=== PATIENT | male | born 1965 | race Caucasian/White ===

== ENCOUNTER 2022-08-19 17:50 | Emergency (ER) | payer OTHER, SELFPAY ==
--- NOTE | ~2022-08-19 | XR_ITS ---
EXAMINATION: XR chest 2V Exam Date/Time: 08/19/2022 18:05 SERVICES ACCOUNT MANAGER HISTORY: COUGH/SOB/FEVER HISTORY OF ASTHMA Comparison: None available. RESULT: Lines, tubes, and devices: None. Lungs and pleura: Mild scattered reticulonodular opacities in the mid and lower lungs, greater on th e right. Cardiomediastinal silhouette: Stable. Other: No acute osseous or upper abdominal finding. IMPRESSION: Pulmonary opacities may represent mild bronchiolitis, as can be seen with atypical infection, asthma, aspiration, and small airways disease. Reviewed, dictated and finalized at location K. ICES ACCOUNT MANAGER IMPRESSION: Pulmonary opacities may represent mild bronchiolitis, as can be seen with atypi patrica infection, asthma, aspiration, and small airways disease.
--- NOTE | 2022-08-19 17:56 | ED.URI ---
HPI - URI/Sore Throat General Chief Complaint: Upper Respiratory Infection Stated Complaint: ASTHMA/CHEST TIGHT/CONGESTION/BODY ACHES Time Seen by Provider: 08/19/22 17:56 Source: patient and RN notes reviewed History of Present Illness HPI Narrative: Patient is a 56-year-old male who presents to urgent care with complaints of body aches, chest congestion, chest tightness and fever. Patient states he started with a cough, for the last 2 weeks, which has now developed into chest tightness, body aches and fevers. Patient has not taken anything [id number] for his fever or upper respiratory symptoms. Patient does use his inhalers as needed. No other acute complaints. No acute distress noted. Patient aware of the plan of care. Some parts of this dictation were generated by voice recognition software and may contain typographical and/or grammatical inaccuracies. Related Data Home Medications Medication Instructions Recorded Confirmed albuterol sulfate 90 mcg/actuation 90 mcg inhalation DIRECTED 08/19/22 08/19/22 aerosol inhaler atenolol 50 mg tablet 50 mg DIRECTED 08/19/22 08/19/22 gabapentin 300 mg capsule 300 mg DIRECTED 08/19/22 08/19/22 lisinopril 20 1 tablet DIRECTED 08/19/22 08/19/22 mg-hydrochlorothiazide 12.5 mg tablet metformin 1,000 mg tablet 1,000 mg DIRECTED 08/19/22 08/19/22 simvastatin 40 mg tablet 40 mg DIRECTED 08/19/22 08/19/22 tamsulosin 0.4 mg capsule 0.4 mg PO DIRECTED 08/19/22 08/19/22 Allergies Allergy/AdvReac Type Severity Reaction Status Date / Time No Known Allergies Allergy Verified 08/19/22 19:09 Review of Systems Review of Systems: CONSTITUTIONAL: Reports a fever and fatigue EYES: Denies visual changes, redness, or discharge. ENT: Reports of congestion, postnasal drainage and rhinorrhea CARDIOVASCULAR: Denies chest pain, palpitations, or edema. RESPIRATORY: Reports of cough and chest tightness GASTROINTESTINAL: Denies abdominal pain, nausea, vomiting, or diarrhea. GENITOURINARY: Denies dysuria or hematuria. SKIN: Denies rash or itching. MUSCULOSKELETAL: Denies back pain, joint pain. Reports body aches NEUROLOGIC: Denies headache, numbness, or weakness. All other systems reviewed are negative, except as documented in HPI. PMFSH Comments At the time of my signature, I reviewed and agree with the nursing past medical, surgical, social, and family history. There is no relevant family history pertinent to the patient complaint. Exam Narrative: GENERAL: This is a well-nourished, well-developed patient, in no apparent distress. HEAD: normocephalic, atraumatic. EYES: PERRL. Sclera clear/white. Vision is grossly intact. EARS: External ears normal, auditory canals clear and without drainage, TMs normal without perforation. Hearing grossly intact. NOSE: External nose normal with no obvious nasal discharge, nares without redness, no rhinorrhea. THROAT: Mucous membranes moist, posterior pharynx clear. Moderate postnasal drainage NECK: Neck supple, non-tender without lymphadenopathy CARDIOVASCULAR: Regular rate and rhythm without murmurs, gallops, or rubs. RESPIRATORY: Inspiratory wheezes and diminished to the right upper lobe otherwise clear SKIN: warm, intact with no suspicious lesions or rash, good texture and turgor. NEURO: awake, alert, and oriented to person, place and time. There were no obvious focal neurologic abnormalities. EXTREMITIES: No clubbing, cyanosis, or edema. Course Course Level of Care: Express Care Visit Vital Signs Vital signs: Vital Signs Temperature 101.3 F H 08/19/22 18:01 Pulse Rate 101 H 08/19/22 18:01 Respiratory Rate 16 08/19/22 18:01 Blood Pressure 163/88 H 08/19/22 18:01 Pulse Oximetry 100 08/19/22 18:01 Temperature 101.3 F H 08/19/22 18:01 Pulse Rate 101 H 08/19/22 18:01 Respiratory Rate 16 08/19/22 18:01 Blood Pressure 163/88 H 08/19/22 18:01 Pulse Oximetry 100 08/19/22 18:01 Reviewed- Pat
[2022-08-19 18:01] VITALS: BP 163/88; PULSE 101; RESP 16; TEMP 38.5; O2SAT 100
== END 2022-08-19 19:19 | disposition home or self-care (01) ==
PROVIDERS: Emergency Provider Nurse Practitioner Family
DX: J40 Bronchitis, not specified as acute or chronic (principal)
CPT/HCPCS: 71046; 99213; G0463

== ENCOUNTER 2022-08-31 11:34 | Emergency (ER) | payer OTHER, SELFPAY ==
--- NOTE | ~2022-08-31 | XR_ITS ---
EXAMINATION: XR toe 1st RT min 2V DATE: 08/31/2022 12:50 INDICATION: Swollen and erythematous right great toe TECHNIQUE: Dorsal plantar, lateral and 2 oblique views of the right great toe were obtained. COMPARISON: None FINDINGS: Bone alignment is normal. Minimal osteoarthritis at the first metatarsophalangeal joint. Remaining halley int spaces are relatively preserved. Soft tissue swelling about the right great toe. Skin ulceration at the plantar aspect of the base of the first distal phalanx. There is extension of gas into the kandice per soft tissues. No cortical associated cortical erosion or evident osteolysis to suggest osteomyeli tis. No extension of gas into the more proximal soft tissues to more specifically suggest necrotizing fasciitis although this is a clinical diagnosis. IMPRESSION: Skin ulceration and deeper extension of soft tissue gas at the distal phalanx of the right great toe without evident osteomyelitis. Reviewed, dictated and finalized at location A. ION COMMANDER IMPRESSION: Skin ulceration and deeper extension of soft tissue gas at the distal phalanx o f the right great toe without evident osteomyelitis.
[2022-08-31 11:43] VITALS: BP 137/64; PULSE 88; RESP 16; TEMP 36; O2SAT 99
--- NOTE | 2022-08-31 12:48 | ED.EXTPRO ---
HPI - Extremity Problem General Chief complaint: Extremity Problem,Nontraumatic Stated complaint: SWOLLEN TOE Time Seen by Provider: 08/31/22 12:57 Source: patient Mode of arrival: ambulatory Limitations: no limitations History of Present Illness HPI Narrative: 56-year-old male with a history of diabetes presented for complaint of swelling, pain, and redness to the right great toe for about 3 days. States he developed a callus to the toe after walking for a long time. He states then the callus became loose and he attempted to remove it by cutting on it. Since then the symptoms developed. He states he tried to find a sign hanger but was not able to. He endorses moving to the area in May. He endorses compliance with his diabetic medications, but has not been checking his blood sugars. He was placed on doxycycline and steroid 2 weeks ago for URI. Continues to report sinus pressure congestion. He denies shortness of breath, wheezing, nausea vomiting, diarrhea, fever or chills. Related Data Home Medications Medication Instructions Recorded Confirmed albuterol sulfate 90 mcg/actuation 90 mcg inhalation DIRECTED 08/19/22 08/31/22 aerosol inhaler atenolol 50 mg tablet 50 mg DIRECTED 08/19/22 08/31/22 gabapentin 300 mg capsule 300 mg DIRECTED 08/19/22 08/31/22 lisinopril 20 1 tablet DIRECTED 08/19/22 08/31/22 mg-hydrochlorothiazide 12.5 mg tablet metformin 1,000 mg tablet 1,000 mg DIRECTED 08/19/22 08/31/22 simvastatin 40 mg tablet 40 mg DIRECTED 08/19/22 08/31/22 tamsulosin 0.4 mg capsule 0.4 mg PO DIRECTED 08/19/22 08/31/22 Allergies Allergy/AdvReac Type Severity Reaction Status Date / Time No Known Allergies Allergy Verified 08/19/22 19:09 Review of Systems Review of Systems: CONSTITUTIONAL: Denies body aches, fever, chills EYES: Denies visual changes ENT: Denies rhinorrhea, congestion CARDIOVASCULAR: Denies chest pain, palpitations, or edema. RESPIRATORY: Denies cough or dyspnea. GASTROINTESTINAL: Denies abdominal pain, nausea, vomiting, or diarrhea. SKIN: Per HPI MUSCULOSKELETAL: Denies back pain, joint pain, or myalgia. NEUROLOGIC: Denies headache, numbness, tingling, or weakness. All systems reviewed & are unremarkable except as noted in HPI and below PMFSH Comments At time of signature, I have reviewed and agree with nursing past medical, surgical, social and family history unless otherwise noted. Please see nursing chart for further information. There is no relevant family history pertinent to the presenting complaint Exam Narrative: GENERAL: Well-appearing CHEST: Speaks in full sentences. No respiratory distress. HEART: Regular rate and rhythm. Normal and equal peripheral pulses. EXTREMITIES: Right great toe with large amount of swelling and erythema to MTP. Callous to the plantar aspect with small amount of purulent drainage with pressure; Darkened discoloration also to the planar aspect mid toe. Right foot has normal strength and sensation, normal range of motion. No open wounds, or obvious deformity; pulse palpable and equal bilaterally, skin warm, dry, pink. Capillary refill less than 3 seconds. SKIN: Warm, dry, no rash. NEURO: Alert and oriented x3. PSYCH: Normal mood and affect Course Course Emergency Course: Patient is aware of diagnosis, understands and agrees to treatment plan. Anticipatory guidance given. Patient agrees to follow-up as directed and is aware of reasons to seek care at the emergency department. Portions of this record may have been created with voice recognition software Level of Care: Express Care Visit Vital Signs Vital signs: Vital Signs Temperature 96.8 F L 08/31/22 11:43 Pulse Rate 88 08/31/22 11:43 Respiratory Rate 16 08/31/22 11:43 Blood Pressure 137/64 08/31/22 11:43 Pulse Oximetry 99 08/31/22 11:43 Temperature 96.8 F L 08/31/22 11:43 Pulse Rate 88 08/31/22 11:43 Respiratory Rate 16 08/31/22
== END 2022-08-31 14:12 | disposition short-term general hospital (02) ==
PROVIDERS: Emergency Provider Nurse Practitioner Family
DX: L97.519 Non-pressure chronic ulcer of other part of right foot with unspecified severity (principal); E78.00 Pure hypercholesterolemia, unspecified; I10 Essential (primary) hypertension; J45.909 Unspecified asthma, uncomplicated; N40.0 Benign prostatic hyperplasia without lower urinary tract symptoms; E11.9 Type 2 diabetes mellitus without complications
CPT/HCPCS: 73660; 99212; G0463

== ENCOUNTER 2022-08-31 15:05 | Inpatient (IN) | payer OTHER, SELFPAY ==
[2022-08-31] VITALS (14 sets, daily range): BP systolic 114–143; BP diastolic 66–88; PULSE 88–100; RESP 16–20; TEMP 36.7–37.2; O2SAT 94–99; BMI 69.9
--- NOTE | ~2022-08-31 | XR_ITS ---
Clinical Indication: Shortness of breath PA and lateral views of the chest: Comparison: 08/19/2022 Findings: The lungs are clear, without evidence of focal consolidation or pleural effusion. Cardiome diastinal silhouette is within normal limits. Bones and soft tissues are unremarkable. Impression: Normal chest. Reviewed, dictated and finalized at location [] Impression: Normal chest.
--- NOTE | 2022-08-31 16:59 | ED.GENADULT ---
HPI - General Adult General Chief complaint: Skin/Abscess/Foreign Body Stated complaint: toe ulcer Time Seen by Provider: 08/31/22 16:52 History of Present Illness HPI narrative: Patient is a 56-year-old male with a history of type 2 diabetes here for evaluation of right great toe redness, swelling and pain for the past day. Patient states that he popped a blister on the toe 2 weeks ago, but first noticed the redness and swelling yesterday. He denies any systemic symptoms currently, but was treated for pneumonia 2 weeks ago and had fevers at that time. He presented to an urgent care facility today and had an x-ray that showed subcutaneous gas but no evidence of osteomyelitis, but was referred to the ED given the appearance of his toe and risk factors for osteomyelitis. Related Data Home Medications Medication Instructions Recorded Confirmed albuterol sulfate 90 mcg/actuation 90 mcg inhalation DIRECTED 08/19/22 08/31/22 aerosol inhaler atenolol 50 mg tablet 50 mg DIRECTED 08/19/22 08/31/22 gabapentin 300 mg capsule 300 mg DIRECTED 08/19/22 08/31/22 lisinopril 20 1 tablet DIRECTED 08/19/22 08/31/22 mg-hydrochlorothiazide 12.5 mg tablet metformin 1,000 mg tablet 1,000 mg DIRECTED 08/19/22 08/31/22 simvastatin 40 mg tablet 40 mg DIRECTED 08/19/22 08/31/22 tamsulosin 0.4 mg capsule 0.4 mg PO DIRECTED 08/19/22 08/31/22 Allergies Allergy/AdvReac Type Severity Reaction Status Date / Time No Known Allergies Allergy Verified 08/31/22 16:44 Review of Systems Review of Systems: Gen: Denies fevers or chills Eyes: Denies eye pain or visual change ENT: Denies congestion Respiratory: Denies shortness of breath or cough CV: Denies chest pain or palpitations GI: Denies abdominal pain nausea, emesis or diarrhea : denies burning, urgency, frequency or hematuria Musculoskeletal: Reports right great toe pain redness and swelling Neuro: Denies numbness, tingling, weakness or focal weakness Skin: Denies rash Except as documented, all other systems reviewed and negative Exam Narrative: APPEARANCE: Well appearing, no pain in distress, well-nourished. Head: Normocephalic and atraumatic. EYES: PERRLA/EOMI, conjunctivae clear NOSE: No nasal drainage EARS: External ear normal in appearance THROAT: Oropharynx is clear. Mucous membranes are moist. NECK: Supple. No adenopathy, no masses. RESPIRATORY: Airway patent, respirations nonlabored. Clear to auscultation bilaterally, no rales, rhonchi, wheezing. CARDIOVASCULAR: Regular rate and rhythm without murmurs, rubs, or gallops. ABDOMINAL: Normoactive bowel sounds. Soft, nontender, nondistended. No rebound tenderness or guarding. MUSCULOSKELETAL: Right great toe is markedly erythematous and swollen, he has a area of skin breakdown along the medial aspect and palpable subcutaneous gas along the plantar aspect of the toe with blistering. No pain with passive range of motion. NEURO: Normal speech. No focal neurologic deficits. SKIN: Skin is warm and dry. No rashes. PSYCHIATRIC: Normal affect/mood. Course Vital Signs Vital signs: Vital Signs Temperature 98.0 F 08/31/22 15:33 Pulse Rate 88 08/31/22 15:33 Respiratory Rate 16 08/31/22 15:33 Blood Pressure 125/66 08/31/22 15:33 Pulse Oximetry 99 08/31/22 15:33 Oxygen Delivery Room Air 08/31/22 15:33 Temperature 98.9 F 08/31/22 16:38 Pulse Rate 90 08/31/22 16:38 Respiratory Rate 18 08/31/22 16:38 Blood Pressure 114/68 08/31/22 18:15 Pulse Oximetry 99 08/31/22 19:00 Oxygen Delivery Room Air 08/31/22 15:33 Medical Decision Making [facility] Narrative Medical decision making narrative: 56-year-old male who is a type II diabetic here for evaluation of marked right great toe swelling and pain and redness for the past day after scratching at a blister. Patient's right great toe is markedly erythematous and swelling and there is a open area on the dorsum that is draining purulent mate
[2022-08-31 17:43] LABS: Basophils Percent Auto 0.1 % (0.2-1.2); Eosinophils Percent Auto 0.2 % (0-4.4); Hematocrit 40.9 % (42.0-52.0); Hemoglobin 13.3 g/dL (14.0-18.0); Immature Granulocyte Absolute 0.12 K/mm3 (0.00-0.031); Immature Granulocyte Percent A 0.8 % (0-0.5); Lymphocytes Percent Auto 11.5 % (18.3-44.2); Mean Corpuscular HGB Conc 32.5 g/dl (32-36); Mean Corpuscular Hemoglobin 28.8 pg (26-34); Mean Corpuscular Volume 88.5 fl (80-100); Mean Platelet Volume 9.6 fl (7.4-10.4); Monocytes Absolute Auto 0.7 K/mm3 (0.1-0.6); Monocytes Percent Auto 4.9 % (2.6-8.5); Neutrophils Absolute Auto 12.2 K/mm3 (1.3-6.7); Neutrophils Percent Auto 82.5 % (45.5-73.1); Platelet Count Result 235 k/mm3 (150-375); Red Blood Count 4.62 M/mm3 (4.6-6.20); Red Cell Distribution Width 13.1 % (11.5-14.5); White Blood Count 14.8 K/mm3 (4.5-10.0)
[2022-08-31 17:53] LABS: Lactic Acid Reflex 1.7 mmol/L (0.7-2.0)
[2022-08-31 17:55] LABS: Alanine Aminotransferase 32 U/L (6-50); Albumin Level 4.5 g/dL (3.5-5.1); Alkaline Phosphatase 76 U/L (38-126); Anion Gap 8 mmol/L (8-16); Aspartate Amino Transferase 26 U/L (17-59); Bilirubin,Total 1.3 mg/dL (0.2-1.3); Blood Urea Nitrogen 26 mg/dL (9-20); CRP 6.6 mg/dL (<1.0); Calcium 9.4 mg/dL (8.4-10.2); Carbon Dioxide 28 mmol/L (22-30); Chloride 98 mmol/L (98-107); Estimated CRCL calculation 83 ml/min; Estimated Glomerular Filt Rate > 60; Glucose 396 mg/dL (65-110); Potassium 4.6 mmol/L (3.4-5.0); Sodium 134 mmol/L (137-145)
[2022-08-31 18:11] LABS: Erythrocyte Sedimentation Rate 19 mm/hr (0-20)
[2022-08-31 18:48] LABS: Influenza A QL RT-PCR Positive (Negative); Influenza B QL RT-PCR Negative (Negative); SARS-CoV-2 RNA PCR Negative
--- NOTE | 2022-08-31 21:20 | ADMGEN ---
This patient, Eric Santos, was admitted to Medical Room 241-01. Patient/family oriented to hospital policies and general routines including ID bracelet, bed and alarms, visiting hours, pain management, procedures, bathroom and other care routines, personal items, smoking policy, room service/diet, and visiting hours. Information on how to activate the Rapid Response Team has been discussed. Patient/Family are encouraged to report perceived risks to care and to ask questions if they do not understand what they are told or what they should do.
[2022-09-01] VITALS (8 sets, daily range): BP systolic 114–130; BP diastolic 54–61; PULSE 59–95; RESP 16–20; TEMP 36.3–36.8; O2SAT 95–99
[2022-09-01] MEDS: GABAPENTIN 300 MG CAPSULE BY MOUTH ×3 (01:20→20:50)
[2022-09-01] MEDS: TAMSULOSIN HCL 0.4 MG CAPSULE PO ×2 (01:20→20:50)
[2022-09-01] MEDS: SIMVASTATIN 20 MG TABLET 40 MG BY MOUTH ×2 (01:21→20:50)
[2022-09-01] MEDS: atenoloL 50 MG TABLET BY MOUTH ×2 (01:21→20:50)
--- NOTE | 2022-09-01 01:55 | PM.IMHP ---
H&P: HPI History of Present Illness Date/Time: 08/31/22 2300 Chief Complaint: Right toe infection Narrative: This is a 56-year-old diabetic patient who presented to the emergency room with right swollen painful toe. It has gotten worse over the last 3 days. The patient initially had a callus on the right toe several weeks ago and he attempted to remove by cutting it off. Since that times symptoms have developed. The patient attempted to find a front desk supervisor but was not able to find 1. The patient was on doxycycline and steroids approximately 2 weeks ago for an upper respiratory infection. The patient felt very achy today and felt like he had a fever. His white count 14.8. His H&H is 13.3 and 40.9. Blood sugar was found to be 396. C reactive protein 6.6. The patient was found to be positive for influenza. The patient was started on vancomycin. X-ray of the foot was read as skin ulceration and deeper extension of soft tissue gas at the distal phalanx of the right great toe without evidence of osteomyelitis. Dr. Adair has been consulted. The patient is being admitted to observation status on the date of service of 08/31/2022. Review of Systems Review of Systems: See HPI All systems reviewed & are unremarkable except as noted in HPI and below Constitutional: Constitutional: Reports as per HPI and Reports no additional constitutional complaints Eyes: Eyes: Reports as per HPI and Reports no additional eye complaints ENT: Reports system reviewed and no additional complaints, except as documented and Reports Normal hearing present Cardiovascular: Cardiovascular: Reports no additional cardiovascular complaints Respiratory: Respiratory: Reports no additional respiratory complaints and Reports no additional respiratory complaints Gastrointestinal: Gastrointestinal: Reports as per HPI and Reports no additional gastrointestinal complaints Musculoskeletal: Musculoskeletal: Reports no additional musculoskeletal complaints Integumentary/Breasts: Skin/Breast: Reports system reviewed and no additional complaints, except as docu and Reports as per HPI Neurologic: Reports system reviewed and no additional complaints, except as documented, Reports as per HPI and Reports Normal hearing present Psychiatric: Psychiatric: Reports no additional psychiatric complaints and Reports as per HPI Endocrine: Endocrine: Reports no additional endocrine complaints Hematologic/Lymphatic: Hematologic/Lymphatic: Reports no additional hematologic/lymphatic complaints Allergic/Immunologic: Allergic/Immunologic: Reports no additional allergic/immunologic complaints [facility] Past Medical History Medical History (Updated 09/01/22 @ 02:18 by Linda Diamond NP) Asthma Diabetic neuropathy DM2 (diabetes mellitus, type 2) HTN (hypertension) with goal to be determined Hyperlipidemia Surgical History Surgical History (Updated 09/01/22 @ 02:11 by Linda Diamond NP) H/O eye surgery H/O shoulder surgery Sarcoma removed History of back surgery S/P lateral meniscus repair of left knee And right Family History Family History (Updated 09/01/22 @ 02:12 by Linda Diamond NP) Father Hypertension Mother Chronic back pain Social History Social History (Updated 09/01/22 @ 02:14 by Linda Diamond NP) Social History: The patient is and lives with his . The patient has 2 daughters. His is the durable power district attorney for healthcare. The patient is lifelong nonsmoker. He has a couple drinks a week. 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 Code status full code Smoking status: Never smoker Alcohol intake: former Drinks per week: 3 Substance use: former Substance use type: does not use Lack of Transportation: No Lack of Food: Never True Current Housing: I Have Housing Concerned About Future Housing: No Difficulty Paying Gas/Electric Bills: No Difficulty Paying for Meds: No Currently Unemplo
[2022-09-01] MEDS: metroNIDAZOLE 500 MG/ISO 100ML 500 MG/100 ML BAG 100 MG IVPB ×4 (02:25→21:28)
[2022-09-01 03:35] LABS: Basophils Percent Auto 0.2 % (0.2-1.2); Eosinophils Absolute Auto 0.1 K/mm3 (0-0.3); Eosinophils Percent Auto 0.8 % (0-4.4); Hematocrit 37.3 % (42.0-52.0); Hemoglobin 12.2 g/dL (14.0-18.0); Immature Granulocyte Absolute 0.07 K/mm3 (0.00-0.031); Immature Granulocyte Percent A 0.6 % (0-0.5); Lymphocytes Absolute Auto 2.13 K/mm3 (0.9-3.2); Lymphocytes Percent Auto 17.6 % (18.3-44.2); Mean Corpuscular HGB Conc 32.7 g/dl (32-36); Mean Corpuscular Hemoglobin 28.8 pg (26-34); Mean Platelet Volume 9.5 fl (7.4-10.4); Monocytes Absolute Auto 0.9 K/mm3 (0.1-0.6); Monocytes Percent Auto 7.5 % (2.6-8.5); Neutrophils Absolute Auto 8.9 K/mm3 (1.3-6.7); Neutrophils Percent Auto 73.3 % (45.5-73.1); Platelet Count Result 219 k/mm3 (150-375); Red Blood Count 4.24 M/mm3 (4.6-6.20); Red Cell Distribution Width 13.1 % (11.5-14.5); White Blood Count 12.1 K/mm3 (4.5-10.0)
[2022-09-01 03:49] LABS: Alanine Aminotransferase 28 U/L (6-50); Albumin Level 3.9 g/dL (3.5-5.1); Alkaline Phosphatase 69 U/L (38-126); Anion Gap 9 mmol/L (8-16); Aspartate Amino Transferase 24 U/L (17-59); Bilirubin,Total 1.1 mg/dL (0.2-1.3); Blood Urea Nitrogen 23 mg/dL (9-20); Calcium 8.9 mg/dL (8.4-10.2); Carbon Dioxide 25 mmol/L (22-30); Chloride 99 mmol/L (98-107); Estimated CRCL calculation 131 ml/min; Estimated Glomerular Filt Rate > 60; Glucose 355 mg/dL (65-110); Hemoglobin A1C 11.2 % (<5.7); Magnesium 1.8 mg/dL (1.6-2.3); Potassium 4.1 mmol/L (3.4-5.0); Sodium 133 mmol/L (137-145)
[2022-09-01 03:50] LABS: Lactic Acid Reflex 1.2 mmol/L (0.7-2.0)
[2022-09-01 04:24] LABS: Thyroid Stimulating Hormone Reflex 0.917 uIU/mL (0.465-4.68)
[2022-09-01 06:43] LABS: Glucose Point of Care 368 mg/dl (65-105)
[2022-09-01 08:15] LABS: Glucose Point of Care 367 mg/dl (65-105)
--- NOTE | 2022-09-01 08:26 | PM.CNOR ---
Assessment and Plan Assessment and plan (1) Diabetic neuropathy: Qualifiers: Diabetes mellitus type: type 2 Diabetes mellitus complication detail: diabetic polyneuropathy Qualified Code(s): E11.42 - Type 2 diabetes mellitus with diabetic polyneuropathy Code(s): E11.40 - Type 2 diabetes mellitus with diabetic neuropathy, unspecified Status: Acute Assessment and Plan: discuss need for improved blood sugar control. (2) Infection of great toe: Code(s): L08.9 - Local infection of the skin and subcutaneous tissue, unspecified Status: Acute Assessment and Plan: 56-year-old with uncontrolled diabetes. Patient recently moved here from [place]. Has not seen primary care. Hemoglobin A1c greater than 11. Right hallux callus now with subcutaneous abscess and infection. Started on antibiotics. Discussed with patient. Start dressing changes. Plan for debridement of the toe. Possible need for further surgery discussed with the patient. Questions answered. Discussed nonoperative and operative treatment options with the patient. Risks and benefits of each as well as alternatives were reviewed. All of the patient's questions were answered. The risks of surgery reviewed including but not limited to: Neurovascular damage, wound complication, infection, blood clot, pulmonary embolus, stroke, myocardial infarction, and anesthetic risks up to and including . Continued pain and possible dysfunction were explained. Specific risks of the procedure including later recurrence of deformity. No guarantees were offered. If complications occur, the patient understands the need for further treatment, possible further surgery. Patient verbalizes understanding and wishes to proceed. PLAN: Right toe debridement (3) Type 2 diabetes with complication: Code(s): E11.8 - Type 2 diabetes mellitus with unspecified complications Status: Acute (4) Diabetic foot infection: Code(s): E11.628 - Type 2 diabetes mellitus with other skin complications; L08.9 - Local infection of the skin and subcutaneous tissue, unspecified Status: Acute History of Present Illness HPI Consult date: 09/01/22 Requesting physician: Alethea Horne PA-C Chief complaint: Great Toe Infection Narrative: 56-year-old gentleman with uncontrolled diabetes who presented to the emergency room yesterday with a red swollen draining great toe. Patient reports noticed callus and swelling of the great toe right foot 2 months ago. Conservative treatment of the callus at that time. Approximately 10 days ago removed some of the callus at home and noted subsequent redness and swelling of the great toe. Worsening of the redness and swelling noted 3 days ago. Unable to be seen as an outpatient and presented to the emergency room. Currently being treated for flu with steroid and antibiotic. No prior history of toe ulcers or infections. Patient states some loss of sensation in the feet but also associated with lumbar spine problems. Status post lumbar surgery. Review of Systems Constitutional: Constitutional: Denies fever(s) Eyes: Eyes: Denies blurry vision ENT: Reports Normal hearing present Cardiovascular: Cardiovascular: Denies chest pain and Denies dyspnea Respiratory: Respiratory: Denies dyspnea and Denies wheezing Gastrointestinal: Gastrointestinal: Denies abdominal pain Genitourinary: Genitourinary: Denies urinary urgency Musculoskeletal: Musculoskeletal: Reports as per HPI and Denies numbness Integumentary/Breasts: Skin/Breast: Denies changing lesions and Denies sores Neurologic: Reports Normal hearing present, Denies behavioral changes, Denies confusion, Reports numbness ( Mild toes), Denies convulsions and Reports tingling Psychiatric: Psychiatric: Denies behavioral changes, Denies confusion and Denies hallucinations Endocrine: Endocrine: Denies heat intolerance Hematologic/Lymphatic: Hematolo
[2022-09-01] MEDS: ENOXAPARIN 40 MG/0.4 ML SYRINGE SUB-Q (09:20)
[2022-09-01] MEDS: lisinopriL 20 MG TABLET PO (09:20)
[2022-09-01] MEDS: OSELTAMIVIR PHOSPHATE 75 MG CAPSULE PO ×2 (09:20→20:50)
[2022-09-01] MEDS: hydroCHLOROthiazide 12.5 MG CAPSULE PO (09:20)
[2022-09-01] MEDS: INSULIN ASPART (*BKC) 100 UNITS/ML SUB-Q ×3 (09:29→17:30)
[2022-09-01 12:06] LABS: Glucose Point of Care 346 mg/dl (65-105)
[2022-09-01] MEDS: guaiFENesin/DEXTROMETHORPHAN 10 ML UDC PO (12:38)
--- NOTE | 2022-09-01 17:06 | PM.IMPN ---
Progress Note: A&P Assessment and Plan (1) Infection of great toe: Code(s): L08.9 - Local infection of the skin and subcutaneous tissue, unspecified Status: Acute Assessment and Plan: patient had a callus of the right great toe which has infected x-ray revealed skin ulceration with deeper extension of soft tissue gas in the distal phalanx of the right great toe without evidence of osteomyelitis appreciate orthopedic surgery consultation continue vanc, cefepime, and Flagyl leukocytosis is improving CRP 6.6 patient is afebrile planning for great toe debridement per Orthopedic surgery wound culture pending blood culture pending (2) DM2 (diabetes mellitus, type 2): Code(s): E11.9 - Type 2 diabetes mellitus without complications Status: Acute Assessment and Plan: uncontrolled. A1c is 11.2. Continue Accu-Cheks, sliding scale insulin, hypoglycemic protocol begin Lantus 20 units q.h.s. NovoLog 6 units scheduled with meals patient is hesitant about considering home insulin. requests CDE evaluation home metformin on hold (3) Influenza A: Code(s): J10.1 - Influenza due to other identified influenza virus with other respiratory manifestations Status: Acute Assessment and Plan: influenza a PCR positive on 08/30/2022 CXR with pulmonary opacities which may represent mild bronchiolitis and possible atypical infection continue Tamiflu supportive care patient has no oxygen requirement (4) HTN (hypertension) with goal to be determined: Code(s): I10 - Essential (primary) hypertension Status: Chronic Assessment and Plan: blood pressure is stable. Continue home lisinopril-hydrochlorothiazide and atenolol (5) Asthma: Code(s): J45.909 - Unspecified asthma, uncomplicated Status: Chronic Assessment and Plan: not in acute exacerbation albuterol as needed (6) Hyperlipidemia: Code(s): E78.5 - Hyperlipidemia, unspecified Status: Chronic Assessment and Plan: no acute issues Continue simvastatin Subjective Date/time seen: 09/01/22 17:06 Interval history: date of service: 09/01/2022 Eric Santos is a 56-year-old male with history of type 2 diabetes mellitus, peripheral neuropathy, hypertension, hyperlipidemia, and asthma who is seen in follow-up for right great toe wound and influenza. On he noticed that his great toe was slightly reddened. He had his trim his nails to make sure there was no ingrown nail an on Friday notice the swelling was worse and he had some mild pain. Yesterday, the toe was very swollen and red and painful. The patient reports that he is feeling well. He has no pain in his toe. He does endorse decreased sensation secondary to neuropathy. Denies any drainage from the toe. He denies fever, chills, nausea, or vomiting. Has had a couple of episodes of diarrhea since starting antibiotics. He endorses cough productive of yellow sputum. He denies shortness of breath. Does endorse sinus congestion. He did not receive a flu vaccine. Reports about 2 weeks ago went to urgent care with complaints of shortness of breath and completed course of doxycycline and prednisone without much improvement. Reports he has not been checking his blood sugars it is frequently and has not had his A1c checked in a while. denies polydipsia or polyuria. Review of Systems Review of Systems: All systems reviewed & are unremarkable except as noted in HPI and below Exam Narrative: General: Obese, well-appearing 56-year-old male, sitting up in a chair, comfortable, NARD Neuro: awake, alert and oriented x4, speech clear, no focal neuro deficits noted HEENMT: normocephalic, atraumatic, EOMI, sclerae anicteric Respiratory: clear to auscultation bilaterally, nonlabored breathing Cardio: regular rate, regular rhythm with S1-S2 Abdomen: non
[2022-09-01 17:08] LABS: Glucose Point of Care 305 mg/dl (65-105)
[2022-09-01] MEDS: guaiFENesin 12 HR 600 MG TABCR PO (20:50)
[2022-09-01] MEDS: FLUTICASONE PROPIONATE 0.05% NA SPR 16 GM BTL (*BKC) 1 SPRAY NASAL (20:51)
[2022-09-01] MEDS: INSULIN GLARGINE (*BKC) 100 UNITS/ML 20 UNITS SUB-Q (21:57)
[2022-09-01 22:51] LABS: Glucose Point of Care 298 mg/dl (65-105)
[2022-09-02] VITALS (14 sets, daily range): BP systolic 93–137; BP diastolic 48–75; PULSE 61–85; RESP 14–20; TEMP 36.2–37.1; O2SAT 98–100
[2022-09-02 04:13] LABS: Vancomycin Trough 15.6 ug/mL (10.0-20.0)
[2022-09-02] MEDS: INSULIN ASPART (*BKC) 100 UNITS/ML SUB-Q ×3 (05:08→17:14)
[2022-09-02] MEDS: metroNIDAZOLE 500 MG/ISO 100ML 500 MG/100 ML BAG 100 MG IVPB ×3 (05:18→23:43)
[2022-09-02] MEDS: OSELTAMIVIR PHOSPHATE 75 MG CAPSULE PO ×2 (05:18→17:13)
[2022-09-02 05:42] LABS: Basophils Percent Auto 0.4 % (0.2-1.2); Eosinophils Absolute Auto 0.2 K/mm3 (0-0.3); Eosinophils Percent Auto 1.4 % (0-4.4); Hematocrit 38.7 % (42.0-52.0); Hemoglobin 12.4 g/dL (14.0-18.0); Immature Granulocyte Absolute 0.05 K/mm3 (0.00-0.031); Immature Granulocyte Percent A 0.5 % (0-0.5); Lymphocytes Absolute Auto 2.31 K/mm3 (0.9-3.2); Lymphocytes Percent Auto 21.4 % (18.3-44.2); Mean Corpuscular Hemoglobin 28.6 pg (26-34); Mean Corpuscular Volume 89.2 fl (80-100); Mean Platelet Volume 9.6 fl (7.4-10.4); Monocytes Absolute Auto 0.9 K/mm3 (0.1-0.6); Neutrophils Absolute Auto 7.4 K/mm3 (1.3-6.7); Neutrophils Percent Auto 68.3 % (45.5-73.1); Platelet Count Result 221 k/mm3 (150-375); Red Blood Count 4.34 M/mm3 (4.6-6.20); Red Cell Distribution Width 12.9 % (11.5-14.5); White Blood Count 10.8 K/mm3 (4.5-10.0)
[2022-09-02 05:52] LABS: Anion Gap 8 mmol/L (8-16); Blood Urea Nitrogen 24 mg/dL (9-20); Calcium 9.2 mg/dL (8.4-10.2); Carbon Dioxide 27 mmol/L (22-30); Chloride 100 mmol/L (98-107); Estimated CRCL calculation 65 ml/min; Estimated Glomerular Filt Rate 57; Glucose 245 mg/dL (65-110); Sodium 135 mmol/L (137-145)
[2022-09-02 06:05] LABS: CRP 13.8 mg/dL (<1.0)
--- NOTE | 2022-09-02 07:09 | WPDHPUPDATE1 ---
History and Physical Update Update Date/Time: 09/02/22 07:09 History and Physical has been reviewed, including an updated exam of the patient. There are NO changes in the patient's condition. Risks, benefits, and alternatives have been discussed and questions answered. Patient agrees to proceed with procedure.
--- NOTE | 2022-09-02 07:38 | WPDANESEPPF ---
Anes - Initial Pre Proc Eval Procedure: Operation Date: 09/02/22 11:30 Proposed Procedures p Incision and Debridement Right Great Toe - Carl Adair MD Date/Time: 09/02/22 07:38 Surgeon: Lainey Youngblood PA-C Pre Op Diagnosis: Great Toe Infection Patient Data Age: 56 Gender: M Height: 1.75 m Weight: 97 kg Last Vital Signs Temp 37.1 C 09/02/22 01:30 Pulse 61 09/02/22 01:30 Resp 20 09/02/22 01:30 BP 109/61 09/02/22 01:30 Pulse Ox 99 09/02/22 01:30 O2 Del Method Room Air 09/01/22 20:00 Allergies Allergy/AdvReac Type Severity Reaction Status Date / Time No Known Allergies Allergy Verified 08/31/22 16:44 Home Medications Medication Instructions Recorded Confirmed Type albuterol sulfate 90 mcg/actuation 90 mcg inhalation DIRECTED 08/19/22 08/31/22 History aerosol inhaler atenolol 50 mg tablet 50 mg HS 08/19/22 08/31/22 History gabapentin 300 mg capsule 300 mg BID 08/19/22 08/31/22 History lisinopril 20 1 tablet DAILY 08/19/22 08/31/22 History mg-hydrochlorothiazide 12.5 mg tablet metformin 1,000 mg tablet 1,000 mg BID 08/19/22 08/31/22 History simvastatin 40 mg tablet 40 mg HS 08/19/22 08/31/22 History tamsulosin 0.4 mg capsule 0.4 mg PO HS 08/19/22 08/31/22 History Laboratory Tests 09/01/22 09/01/22 09/01/22 08:06 11:56 17:03 WBC RBC Hgb Hct MCV MCH MCHC RDW Plt Count MPV Immature Gran % (Auto) Neut % (Auto) Lymph % (Auto) [place] % (Auto) Eos % (Auto) Baso % (Auto) Lymph # (Auto) [place] # (Auto) Eos # (Auto) Baso # (Auto) Abs Immat Gran (auto) Absolute Neuts (auto) Absolute Nucleated RBC Nucleated RBC % Sodium Potassium Chloride Carbon Dioxide Anion Gap BUN Creatinine Estim Creat Clear Calc Estimated GFR Glucose POC Capillary Glucose 367 mg/dl H mg/dl 346 mg/dl H mg/dl 305 mg/dl H mg/dl (65-105) (65-105) (65-105) Calcium C-Reactive Protein Vancomycin Trough 09/01/22 09/02/22 09/02/22 21:41 02:34 04:40 WBC 10.8 K/mm3 H K/mm3 (4.5-10.0) RBC 4.34 M/mm3 L M/mm3 (4.6-6.20) Hgb 12.4 g/dL L g/dL (14.0-18.0) Hct 38.7 % L % (42.0-52.0) MCV 89.2 fl fl (80-100) MCH 28.6 pg pg (26-34) MCHC 32.0 g/dl g/dl (32-36) RDW 12.9 % % (11.5-14.5) Plt Count 221 k/mm3 k/mm3 (150-375) MPV 9.6 fl fl (7.4-10.4) Immature Gran % (Auto) 0.5 % % (0-0.5) Neut % (Auto) 68.3 % % (45.5-73.1) Lymph % (Auto) 21.4 % % (18.3-44.2) [place] % (Auto) 8.0 % % (2.6-8.5) Eos % (Auto) 1.4 % % (0-4.4) Baso % (Auto) 0.4 % % (0.2-1.2) Lymph # (Auto) 2.31 K/mm3 K/mm3 (0.9-3.2) [place] # (Auto) 0.9 K/mm3 H K/mm3 (0.1-0.6) Eos # (Auto) 0.2 K/mm3 K/mm3 (0-0.3) Baso # (Auto) 0.0 K/mm3 K/mm3 (0.0-0.1) Abs Immat Gran (auto) 0.05 K/mm3 H K/mm3 (0.00-0.031) Absolute Neuts (auto) 7.4 K/mm3 H K/mm3 (1.3-6.7) Absolute Nucleated RBC 0.0 K/mm3 K/mm3 (0.0-0.012) Nucleated RBC % 0.0 % % (0.0-0.2) Sodium Potassium Chloride Carbon Dioxide Anion Gap BUN Creatinine Estim Creat Clear Calc Estimated GFR Glucose POC Capillary Glucose 298 mg/dl H mg/dl (65-105) Calcium C-Reactive Protein Vancomycin Trough 15.6 ug/mL ug
[2022-09-02 07:47] LABS: Glucose Point of Care 297 mg/dl (65-105)
[2022-09-02] MEDS: LACTATED RINGERS 1,000 ML 30 ML IV CONT (07:53)
[2022-09-02 08:19] LABS: Glucose Point of Care 244 mg/dl (65-105)
[2022-09-02] MEDS: BUPIVACAINE HCL 0.5% PF 30 ML VIAL INFILTRATE (08:37)
[2022-09-02] MEDS: BACITRACIN OINTMENT 15 GM TUBE 1 APPLIC TOPICAL (08:51)
[2022-09-02 09:07] LABS: Glucose Point of Care 282 mg/dl (65-105)
--- NOTE | 2022-09-02 09:17 | W.PM.PROC2 ---
Procedure Note - Detailed Date of Procedure 09/02/22 Pre-op Diagnosis Great Toe Infection Post-op Diagnosis Same Procedure Performed Excisional debridement of right great toe Surgeon Carl Adair MD Dianetic Counselor 1st learning and development assistant Anesthesia MAC Indications 56-year-old with diabetes, peripheral neuropathy and right hallux soft tissue infection. Purulence drainage noted. Loss of skin from the end of the toe. Patient presents for operative treatment. Findings Abscess involving the plantar and lateral aspect of the hallux extending to the flexor hallucis longus tendon sheath. Description of Procedure Patient identified in the preoperative holding. Informed consent given. Operative extremity marked. Patient received intravenous antibiotics. Patient brought to the operating room where underwent Intravenous sedation by anesthesia team. Positioned supine on operating room table. Time-out performed confirming the patient, site of the surgery and the plan. Right foot prepped and draped usual sterile surgical fashion using a Betadine prep solution. local anesthetic with 0.5% Marcaine plain to the right hallux. 1.2 cm callus on the medial aspect of the distal hallux was removed with a 15 blade knife. Subcutaneous tissue with infection noted. Debrided with 15 blade knife. [place] elevator placed through this with communication across the plantar pulp of the toe to the lateral aspect abscess. The skin over the lateral aspect removed with 15 blade knife which was devitalized. This opened a subcutaneous abscess in the pulp itself. Purulent material drained and suctioned. Infected and devitalized subcutaneous tissue and muscle sharply excised with 15 blade knife and rongeur and passed off. Incision through the skin connecting the lateral abscess with the medial callus then made with 15 blade knife. Soft tissue reflected plantarward. This allowed exposure of the distal flexor hallucis longus which had abscess noted in the tendon sheath. Tendon sheath opened and debrided with 15 blade knife and rongeur. Purulent material suctioned. Wound thoroughly irrigated with antibiotic solution. No proximal tracking noted from the hallux to the foot. No evidence of involvement of the joints. Skin closed with 2 0 Prolene interrupted suture were able to. The lateral abscess was left open. Bacitracin ointment and gauze packed into the wound. Sterile dressing applied. The patient was then woken from anesthesia, extubated and taken to the recovery room in stable condition. All sponge, needle, instrument counts were correct at the end of the case. Implants None Estimated Blood Loss -5.0 Tourniquet Time 0 Drains No Packing Yes Pathology None sent Complications None Condition Stable Disposition PACU [facility] Billing Surgery - Charge Forward: Surgery Billing ([id number])
[2022-09-02] MEDS: FLUTICASONE PROPIONATE 0.05% NA SPR 16 GM BTL (*BKC) 1 SPRAY NASAL ×2 (10:09→20:36)
[2022-09-02] MEDS: ENOXAPARIN 40 MG/0.4 ML SYRINGE SUB-Q (10:09)
[2022-09-02] MEDS: lisinopriL 20 MG TABLET PO (10:10)
[2022-09-02] MEDS: GABAPENTIN 300 MG CAPSULE BY MOUTH ×2 (10:10→20:35)
[2022-09-02] MEDS: hydroCHLOROthiazide 12.5 MG CAPSULE PO (10:10)
[2022-09-02] MEDS: guaiFENesin 12 HR 600 MG TABCR PO ×2 (10:10→20:35)
[2022-09-02] MEDS: SODIUM CHLORIDE 0.9% IV 1,000 ML 125 ML IV CONT (10:17)
[2022-09-02] MEDS: INSULIN ASPART (*BKC) 100 UNITS/ML 6 UNITS SUB-Q ×2 (10:26→12:49)
[2022-09-02 12:20] LABS: Glucose Point of Care 303 mg/dl (65-105)
[2022-09-02] MEDS: ACETAMINOPHEN 325 MG TABLET 650 MG PO ×2 (14:26→20:40)
--- NOTE | 2022-09-02 15:33 | P.PNIM_ITS ---
Progress Note: A&P Assessment and Plan (1) Infection of great toe: Code(s): L08.9 - Local infection of the skin and subcutaneous tissue, unspecified Status: Acute Assessment and Plan: patient had a callus of the right great toe which has infected * x-ray revealed skin ulceration with deeper extension of soft tissue gas in the distal phalanx of the right great toe without evidence of osteomyelitis * appreciate orthopedic surgery consultation * s/p excisional Debridement of right great toe in the OR today * continue vanc, cefepime, and Flagyl * wound culture is pending, await results and tailor antibiotics accordingly * blood cultures negative to date. * leukocytosis is improving. pt remains afebrile * CRP with slight increased to 13.8, continue to trend (2) DM2 (diabetes mellitus, type 2): Code(s): E11.9 - Type 2 diabetes mellitus without complications Status: Acute Assessment and Plan: uncontrolled. A1c is 11.2. * Continue Accu-Cheks, sliding scale insulin, hypoglycemic protocol * Increase Lantus to 22 units q.h.s. * NovoLog 7 units scheduled with meals * patient is hesitant about considering home insulin. * consult to patient educator today. Appreciate recommendations * home metformin on hold (3) Influenza A: Code(s): J10.1 - Influenza due to other identified influenza virus with other respiratory manifestations Status: Acute Assessment and Plan: influenza A PCR positive on 08/30/2022 * CXR with pulmonary opacities which may represent mild bronchiolitis and possible atypical infection * continue Tamiflu * supportive care. bronchodilators, expectorants, incentive spirometry, stewart bowel * patient has no oxygen requirement (4) HTN (hypertension) with goal to be determined: Code(s): I10 - Essential (primary) hypertension Status: Chronic Assessment and Plan: blood pressure is stable. * Continue home lisinopril-hydrochlorothiazide and atenolol (5) Asthma: Code(s): J45.909 - Unspecified asthma, uncomplicated Status: Chronic Assessment and Plan: not in acute exacerbation * albuterol as needed (6) Hyperlipidemia: Code(s): E78.5 - Hyperlipidemia, unspecified Status: Chronic Assessment and Plan: no acute issues * Continue simvastatin Subjective Date/time seen: 09/02/22 15:33 Interval history: date of service: 09/02/2022 Eric Santos is a 56-year-old male with history of type 2 diabetes mellitus, peripheral neuropathy, hypertension, hyperlipidemia, and asthma who is seen in follow-up for right great toe wound and influenza. he is s/p excisional debridement today and tolerated the procedure well. He has no pain in his toe but does have some soreness. He also complains of headache for which he just took Tylenol and feels that it is starting to improve. His breathing is a bit worse today. He feels more short of breath and is coughing more frequently. He is having coughing spasms which are causing him to have some left-sided pleuritic discomfort. his cough is productive of clear to yellow phlegm. He denies fever or chills. No abdominal pain. Had a bowel movement today. Denies any urinary issues. Review of Systems Review of Systems: All systems reviewed & are unremarkable except as noted in HPI and below Exam Narrative: General: Obese, well-appearing 56-year-old male, sitting up in a chair, comfortable, NARD Neuro: alexandra
--- NOTE | 2022-09-02 15:33 | PM.IMPN ---
Progress Note: A&P Assessment and Plan (1) Infection of great toe: Code(s): L08.9 - Local infection of the skin and subcutaneous tissue, unspecified Status: Acute Assessment and Plan: patient had a callus of the right great toe which has infected x-ray revealed skin ulceration with deeper extension of soft tissue gas in the distal phalanx of the right great toe without evidence of osteomyelitis appreciate orthopedic surgery consultation s/p excisional Debridement of right great toe in the OR today continue vanc, cefepime, and Flagyl wound culture is pending, await results and tailor antibiotics accordingly blood cultures negative to date. leukocytosis is improving. pt remains afebrile CRP with slight increased to 13.8, continue to trend (2) DM2 (diabetes mellitus, type 2): Code(s): E11.9 - Type 2 diabetes mellitus without complications Status: Acute Assessment and Plan: uncontrolled. A1c is 11.2. Continue Accu-Cheks, sliding scale insulin, hypoglycemic protocol Increase Lantus to 22 units q.h.s. NovoLog 7 units scheduled with meals patient is hesitant about considering home insulin. consult to coding educator today. Appreciate recommendations home metformin on hold (3) Influenza A: Code(s): J10.1 - Influenza due to other identified influenza virus with other respiratory manifestations Status: Acute Assessment and Plan: influenza A PCR positive on 08/30/2022 CXR with pulmonary opacities which may represent mild bronchiolitis and possible atypical infection continue Tamiflu supportive care. bronchodilators, expectorants, incentive spirometry, stewart bowel patient has no oxygen requirement (4) HTN (hypertension) with goal to be determined: Code(s): I10 - Essential (primary) hypertension Status: Chronic Assessment and Plan: blood pressure is stable. Continue home lisinopril-hydrochlorothiazide and atenolol (5) Asthma: Code(s): J45.909 - Unspecified asthma, uncomplicated Status: Chronic Assessment and Plan: not in acute exacerbation albuterol as needed (6) Hyperlipidemia: Code(s): E78.5 - Hyperlipidemia, unspecified Status: Chronic Assessment and Plan: no acute issues Continue simvastatin Subjective Date/time seen: 09/02/22 15:33 Interval history: date of service: 09/02/2022 Eric Santos is a 56-year-old male with history of type 2 diabetes mellitus, peripheral neuropathy, hypertension, hyperlipidemia, and asthma who is seen in follow-up for right great toe wound and influenza. he is s/p excisional debridement today and tolerated the procedure well. He has no pain in his toe but does have some soreness. He also complains of headache for which he just took Tylenol and feels that it is starting to improve. His breathing is a bit worse today. He feels more short of breath and is coughing more frequently. He is having coughing spasms which are causing him to have some left-sided pleuritic discomfort. his cough is productive of clear to yellow phlegm. He denies fever or chills. No abdominal pain. Had a bowel movement today. Denies any urinary issues. Review of Systems Review of Systems: All systems reviewed & are unremarkable except as noted in HPI and below Exam Narrative: General: Obese, well-appearing 56-year-old male, sitting up in a chair, comfortable, NARD Neuro: awake, alert and oriented x4, speech clear, no focal neuro deficits noted HEENMT: normocephalic, atraumatic, EOMI, sclerae anicteric Respiratory: clear to auscultation bilaterally, nonlabored breathing, frequent cough during exam Cardio: regular rate, regular rhythm with S1-S2 Abdomen: nondistended, normoactive bowel sounds, soft, nontender to palpation Extremities: no edema, erythema, or tenderness to palpation, DP pulses 2+ bilaterally Skin: great to
[2022-09-02 16:56] LABS: Glucose Point of Care 219 mg/dl (65-105)
[2022-09-02] MEDS: INSULIN ASPART (*BKC) 100 UNITS/ML 7 UNITS SUB-Q (17:13)
[2022-09-02] MEDS: BENZONATATE 100 MG CAPSULE PO (17:13)
[2022-09-02] MEDS: SIMVASTATIN 20 MG TABLET 40 MG BY MOUTH (20:35)
[2022-09-02] MEDS: atenoloL 50 MG TABLET BY MOUTH (20:36)
[2022-09-02] MEDS: INSULIN GLARGINE (*BKC) 100 UNITS/ML 22 UNITS SUB-Q (20:37)
[2022-09-02] MEDS: TAMSULOSIN HCL 0.4 MG CAPSULE PO (20:37)
[2022-09-02 20:56] LABS: Glucose Point of Care 144 mg/dl (65-105)
[2022-09-03] VITALS (8 sets, daily range): BP systolic 101–128; BP diastolic 46–88; PULSE 60–100; RESP 18–21; TEMP 36.1–36.4; O2SAT 72–100
[2022-09-03 03:23] LABS: Glucose Point of Care 131 mg/dl (65-105)
[2022-09-03 06:08] LABS: Hemoglobin 11.2 g/dL (14.0-18.0); Mean Corpuscular Hemoglobin 28.3 pg (26-34); Mean Corpuscular Volume 88.4 fl (80-100); Mean Platelet Volume 9.5 fl (7.4-10.4); Platelet Count Result 210 k/mm3 (150-375); Red Blood Count 3.96 M/mm3 (4.6-6.20); Red Cell Distribution Width 12.9 % (11.5-14.5); White Blood Count 9.6 K/mm3 (4.5-10.0)
[2022-09-03 06:19] LABS: Anion Gap 5 mmol/L (8-16); Blood Urea Nitrogen 17 mg/dL (9-20); CRP 7.3 mg/dL (<1.0); Calcium 8.5 mg/dL (8.4-10.2); Carbon Dioxide 27 mmol/L (22-30); Chloride 102 mmol/L (98-107); Estimated CRCL calculation 70 ml/min; Estimated Glomerular Filt Rate > 60; Glucose 149 mg/dL (65-110); Potassium 3.6 mmol/L (3.4-5.0); Sodium 134 mmol/L (137-145)
[2022-09-03] MEDS: OSELTAMIVIR PHOSPHATE 75 MG CAPSULE PO ×2 (06:31→17:45)
[2022-09-03] MEDS: metroNIDAZOLE 500 MG/ISO 100ML 500 MG/100 ML BAG 100 MG IVPB (06:34)
[2022-09-03] MEDS: GABAPENTIN 300 MG CAPSULE BY MOUTH ×2 (09:02→20:10)
[2022-09-03] MEDS: ENOXAPARIN 40 MG/0.4 ML SYRINGE SUB-Q (09:02)
[2022-09-03] MEDS: FLUTICASONE PROPIONATE 0.05% NA SPR 16 GM BTL (*BKC) 1 SPRAY NASAL ×2 (09:02→20:10)
[2022-09-03] MEDS: guaiFENesin 12 HR 600 MG TABCR PO ×2 (09:02→20:11)
[2022-09-03] MEDS: hydroCHLOROthiazide 12.5 MG CAPSULE PO (09:03)
[2022-09-03] MEDS: lisinopriL 20 MG TABLET PO (09:03)
[2022-09-03] MEDS: ACETAMINOPHEN 325 MG TABLET 650 MG PO (09:06)
[2022-09-03] MEDS: INSULIN ASPART (*BKC) 100 UNITS/ML 7 UNITS SUB-Q ×3 (09:22→17:44)
[2022-09-03 09:23] LABS: Glucose Point of Care 172 mg/dl (65-105)
[2022-09-03] MEDS: BENZONATATE 100 MG CAPSULE PO ×3 (10:37→17:45)
[2022-09-03 12:09] LABS: Glucose Point of Care 181 mg/dl (65-105)
--- NOTE | 2022-09-03 12:39 | PM.PNORT ---
Progress Note: A&P Assessment and Plan (1) Diabetic foot infection: Code(s): E11.628 - Type 2 diabetes mellitus with other skin complications; L08.9 - Local infection of the skin and subcutaneous tissue, unspecified Status: Acute Assessment and Plan: POD #1: Excisional debridement of right great toe Continue daily dressing changes. Adaptic, cover dry, wrap loosely with Kerlex, tape in place. Elevate. Post op shoe for ambulation. Close glycemic control for optimal healing. Patient continues to have significant maceration to the plantar hallux. He would benefit from return to the OR for graft application. Wound and blood cultures pending. Continue with IV antibiotics in the interim. Appreciate medicine input. Patient needs PCP appointment arranged for outpatient IV antibiotic management and blood glucose control. Plan: Graft and TCC application by Dr. Adair on (2) Type 2 diabetes with complication: Code(s): E11.8 - Type 2 diabetes mellitus with unspecified complications Status: Acute Assessment and Plan: No PCP in the area. Uncontrolled DM. Currently having medications filled from PCP in [place] per patient report. Patient would benefit from diabetic nurse educator. (3) Obesity: Code(s): E66.9 - Obesity, unspecified Status: Acute Subjective Subjective Date/Time Seen: 09/03/22 12:39 Post Op day: 1 Principal diagnosis: Excisional debridement of right great toe Interval history: POD #1: Excisional debridement of right great toe Patient doing well. Concerned about going home with a PICC or midline. No new complaints. Review of Systems Review of Systems: All systems reviewed & are unremarkable except as noted in HPI and below Exam Const: General: comfortable and no acute distress Resp: Effort & Inspection: normal respiratory effort Cardio: Rate: regular rate Rhythm: regular rhythm GI: GI Palp: Yes Soft to palpation and No Tenderness to palpation present (GI) Skin: Wounds: wounds noted Extrem: Other: Left hallux with plantar incision well approximated. Surround tissue macerated. Erythema to the great toe. No extension to the midfoot. Objective Data Vital Signs Vital Signs: Vital Signs - 24 hr 09/02/22 15:39 09/02/22 20:36 09/02/22 20:51 Temperature 36.8 C 36.6 C Pulse Rate 85 85 77 Respiratory Rate 16 20 Blood Pressure 112/59 L 113/54 L Pulse Oximetry 99 99 Oxygen Delivery 09/03/22 03:00 09/02/22 20:00 09/03/22 06:00 Temperature 36.1 C L 36.4 C Pulse Rate 60 66 Respiratory Rate 20 21 H Blood Pressure 101/51 L 112/57 L Pulse Oximetry 98 100 Oxygen Delivery Room Air 09/03/22 09:08 09/03/22 09:00 09/03/22 09:25 Temperature 36.4 C Pulse Rate 72 Respiratory Rate 18 Blood Pressure 120/88 Pulse Oximetry 99 99 Oxygen Delivery Room Air Intake/Output Intake/Output: Intake & Output 08/31/22 09/01/22 09/02/22 09/03/22 23:59 23:59 23:59 23:59 Intake Total 500 2570 4720 940 Output Total 250 Balance 500 2570 4470 940 Meds/Results Medications: Active Medications Generic Name Dose Route Start Last Admin Trade Name Freq PRN Reason Stop Dose Admin Acetaminophen 650 mg 09/02/22 09:54 09/03/22 09:06 Acetaminophen 325 Mg Tablet PO 650 mg Q6H PRN Administration Pain or Fever Hydrocodone Bitart/Acetaminophen 1 tab 09/02/22 09:54 Hydrocodone/Acetaminophen (*Crx) 5-325 Mg Tablet PO Q3H PRN Pain Rated 4-6 Albuterol 2 puff 08/31/22 22:45 Albuterol Sulfate (*Sp) Aerosol 1 Puff INHALATION Q6H PRN Shortness Of Breath Atenolol 50 mg 08/31/22 22:50 09/02/22 20:36 Atenolol 50 Mg Tablet BY MOUTH 50 mg HS SIVAN Administration Benzonatate 100 mg 09/02/22 17:00 09/03/22 10:37 Benzonatate 100 Mg Capsule PO 100 mg TID SIVAN Administration Dextrose 12.5 gm 09/01/22 02:00 Dextrose 50% 25 Gm/50 Ml Syringe IV PUSH PRN PRN
[2022-09-03] MEDS: metroNIDAZOLE 250 MG TABLET 500 MG PO ×2 (15:40→22:05)
--- NOTE | 2022-09-03 15:57 | P.PNIM_ITS ---
Progress Note: A&P Assessment and Plan (1) Infection of great toe: Code(s): L08.9 - Local infection of the skin and subcutaneous tissue, unspecified Status: Acute Assessment and Plan: patient had a callus of the right great toe which was infected * x-ray revealed skin ulceration with deeper extension of soft tissue gas in the distal phalanx of the right great toe without evidence of osteomyelitis * appreciate orthopedic surgery consultation * s/p excisional debridement of right great toe in the OR on 09/02 * preliminary wound cultures reveal mix of organisms of questionable significance with no detection of Staph aureus, beta-hemolytic strep, or Pseudomonas. Final culture results pending * vancomycin discontinued today * continue cefepime, and Flagyl * blood cultures negative to date. * leukocytosis resolved. pt remains afebrile * CRP trending down to 7.3 today. * planning for return to OR for graft application (2) DM2 (diabetes mellitus, type 2): Code(s): E11.9 - Type 2 diabetes mellitus without complications Status: Acute Assessment and Plan: uncontrolled. A1c is 11.2. * Continue Accu-Cheks, sliding scale insulin, hypoglycemic protocol * Increase Lantus to 22 units q.h.s. * NovoLog 7 units scheduled with meals * patient is hesitant about considering home insulin. * consult to evaluation analyst. Appreciate recommendations * home metformin on hold * Blood sugars improving today on above regimen (3) Influenza A: Code(s): J10.1 - Influenza due to other identified influenza virus with other respiratory manifestations Status: Acute Assessment and Plan: influenza A PCR positive on 08/30/2022 * CXR with pulmonary opacities which may represent mild bronchiolitis and possi ble atypical infection * continue Tamiflu for 5 days. Started on 09/01 * supportive care. bronchodilators, expectorants, incentive spirometry, cornet valve * patient has no oxygen requirement (4) HTN (hypertension) with goal to be determined: Code(s): I10 - Essential (primary) hypertension Status: Chronic Assessment and Plan: blood pressure is stable. * Continue home lisinopril-hydrochlorothiazide and atenolol (5) Asthma: Code(s): J45.909 - Unspecified asthma, uncomplicated Status: Chronic Assessment and Plan: Not in acute exacerbation * albuterol as needed (6) Hyperlipidemia: Code(s): E78.5 - Hyperlipidemia, unspecified Status: Chronic Assessment and Plan: no acute issues * Continue simvastatin Subjective Date/time seen: 09/03/22 15:57 Interval history: date of service: 09/03/2022 Eric Santos is a 56-year-old male with history of type 2 diabetes mellitus, peripheral neuropathy, hypertension, hyperlipidemia, and asthma who is seen in follow-up for right great toe wound and influenza. He is doing well today. His pain is well controlled. Denies fever, chills. No nausea or vomiting. His shortness of breath has improved. Congestion is improving. Continues to endorse cough that is productive of clear phlegm. He had a bowel movement today. He has no additional concerns. Review of Systems Review of Systems: All systems reviewed & are unremarkable except as noted in HPI and below Exam Narrative: General: obese, well-appearing 56-year-old male, sitting up in a chair, comfortable, NARD Neuro: awake, alert and oriented x4, speech clear, no foca
--- NOTE | 2022-09-03 15:57 | PM.IMPN ---
Progress Note: A&P Assessment and Plan (1) Infection of great toe: Code(s): L08.9 - Local infection of the skin and subcutaneous tissue, unspecified Status: Acute Assessment and Plan: patient had a callus of the right great toe which was infected x-ray revealed skin ulceration with deeper extension of soft tissue gas in the distal phalanx of the right great toe without evidence of osteomyelitis appreciate orthopedic surgery consultation s/p excisional debridement of right great toe in the OR on 09/02 preliminary wound cultures reveal mix of organisms of questionable significance with no detection of Staph aureus, beta-hemolytic strep, or Pseudomonas. Final culture results pending vancomycin discontinued today continue cefepime, and Flagyl blood cultures negative to date. leukocytosis resolved. pt remains afebrile CRP trending down to 7.3 today. planning for return to OR for graft application (2) DM2 (diabetes mellitus, type 2): Code(s): E11.9 - Type 2 diabetes mellitus without complications Status: Acute Assessment and Plan: uncontrolled. A1c is 11.2. Continue Accu-Cheks, sliding scale insulin, hypoglycemic protocol Increase Lantus to 22 units q.h.s. NovoLog 7 units scheduled with meals patient is hesitant about considering home insulin. consult to agricultural extension educator. Appreciate recommendations home metformin on hold Blood sugars improving today on above regimen (3) Influenza A: Code(s): J10.1 - Influenza due to other identified influenza virus with other respiratory manifestations Status: Acute Assessment and Plan: influenza A PCR positive on 08/30/2022 CXR with pulmonary opacities which may represent mild bronchiolitis and possible atypical infection continue Tamiflu for 5 days. Started on 09/01 supportive care. bronchodilators, expectorants, incentive spirometry, cornet valve patient has no oxygen requirement (4) HTN (hypertension) with goal to be determined: Code(s): I10 - Essential (primary) hypertension Status: Chronic Assessment and Plan: blood pressure is stable. Continue home lisinopril-hydrochlorothiazide and atenolol (5) Asthma: Code(s): J45.909 - Unspecified asthma, uncomplicated Status: Chronic Assessment and Plan: Not in acute exacerbation albuterol as needed (6) Hyperlipidemia: Code(s): E78.5 - Hyperlipidemia, unspecified Status: Chronic Assessment and Plan: no acute issues Continue simvastatin Subjective Date/time seen: 09/03/22 15:57 Interval history: date of service: 09/03/2022 Eric Santos is a 56-year-old male with history of type 2 diabetes mellitus, peripheral neuropathy, hypertension, hyperlipidemia, and asthma who is seen in follow-up for right great toe wound and influenza. He is doing well today. His pain is well controlled. Denies fever, chills. No nausea or vomiting. His shortness of breath has improved. Congestion is improving. Continues to endorse cough that is productive of clear phlegm. He had a bowel movement today. He has no additional concerns. Review of Systems Review of Systems: All systems reviewed & are unremarkable except as noted in HPI and below Exam Narrative: General: obese, well-appearing 56-year-old male, sitting up in a chair, comfortable, NARD Neuro: awake, alert and oriented x4, speech clear, no focal neuro deficits noted HEENMT: normocephalic, atraumatic, EOMI, sclerae anicteric Respiratory: clear to auscultation bilaterally, nonlabored breathing Cardio: regular rate, regular rhythm with S1-S2 Abdomen: nondistended, normoactive bowel sounds, soft, nontender to palpation Extremities: no edema, erythema, or tenderness to palpation, DP pulses 2+ bilaterally Skin: great toe exam deferred as toe is wrapped and in boot, no rashes or lesions, warm and dry Psych: ap
[2022-09-03 17:14] LABS: Glucose Point of Care 176 mg/dl (65-105)
[2022-09-03] MEDS: atenoloL 50 MG TABLET BY MOUTH (20:10)
[2022-09-03] MEDS: TAMSULOSIN HCL 0.4 MG CAPSULE PO (20:11)
[2022-09-03] MEDS: SIMVASTATIN 20 MG TABLET 40 MG BY MOUTH (20:11)
[2022-09-03] MEDS: INSULIN GLARGINE (*BKC) 100 UNITS/ML 22 UNITS SUB-Q (20:40)
[2022-09-03 21:24] LABS: Glucose Point of Care 215 mg/dl (65-105)
[2022-09-04] MEDS: ACETAMINOPHEN 325 MG TABLET 650 MG PO ×2 (00:50→22:29)
[2022-09-04 02:02] VITALS: BP 116/52; PULSE 64; RESP 20; TEMP 36.5; O2SAT 99
[2022-09-04 05:43] LABS: Glucose Point of Care 179 mg/dl (65-105)
[2022-09-04 06:11] LABS: Hematocrit 39.3 % (42.0-52.0); Hemoglobin 12.5 g/dL (14.0-18.0); Mean Corpuscular HGB Conc 31.8 g/dl (32-36); Mean Corpuscular Volume 87.9 fl (80-100); Mean Platelet Volume 9.4 fl (7.4-10.4); Platelet Count Result 254 k/mm3 (150-375); Red Blood Count 4.47 M/mm3 (4.6-6.20); Red Cell Distribution Width 12.8 % (11.5-14.5)
[2022-09-04 06:19] LABS: Alanine Aminotransferase 46 U/L (6-50); Alkaline Phosphatase 68 U/L (38-126); Anion Gap 7 mmol/L (8-16); Aspartate Amino Transferase 48 U/L (17-59); Bilirubin,Total 0.6 mg/dL (0.2-1.3); Blood Urea Nitrogen 17 mg/dL (9-20); Carbon Dioxide 27 mmol/L (22-30); Chloride 100 mmol/L (98-107); Estimated CRCL calculation 76 ml/min; Estimated Glomerular Filt Rate > 60; Glucose 173 mg/dL (65-110); Potassium 3.7 mmol/L (3.4-5.0); Sodium 134 mmol/L (137-145)
[2022-09-04 07:01] VITALS: BP 118/64; PULSE 56; RESP 20; TEMP 36.2; O2SAT 98
[2022-09-04] MEDS: ENOXAPARIN 40 MG/0.4 ML SYRINGE SUB-Q (08:33)
[2022-09-04] MEDS: guaiFENesin 12 HR 600 MG TABCR PO ×2 (08:33→20:32)
[2022-09-04] MEDS: GABAPENTIN 300 MG CAPSULE BY MOUTH ×2 (08:33→20:32)
[2022-09-04] MEDS: lisinopriL 20 MG TABLET PO (08:33)
[2022-09-04] MEDS: OSELTAMIVIR PHOSPHATE 75 MG CAPSULE PO ×2 (08:34→17:17)
[2022-09-04] MEDS: hydroCHLOROthiazide 12.5 MG CAPSULE PO (08:34)
[2022-09-04] MEDS: metroNIDAZOLE 250 MG TABLET 500 MG PO ×3 (08:34→20:32)
--- NOTE | 2022-09-04 08:34 | PM.PNORT ---
Progress Note: A&P Assessment and Plan (1) Diabetic foot infection: Code(s): E11.628 - Type 2 diabetes mellitus with other skin complications; L08.9 - Local infection of the skin and subcutaneous tissue, unspecified Status: Acute (2) Infection of great toe: Code(s): L08.9 - Local infection of the skin and subcutaneous tissue, unspecified Status: Acute Assessment and Plan: Postoperative day 2 right great toe debridement. Overall improved with improved swelling and erythema. Open wound on the plantar lateral aspect at risk for infection and poor wound healing. Discussed with patient. Desires operative debridement and application of graft. Discussed nonoperative and operative treatment options with the patient. Risks and benefits of each as well as alternatives were reviewed. All of the patient's questions were answered. The risks of surgery reviewed including but not limited to: Neurovascular damage, wound complication, infection, blood clot, pulmonary embolus, stroke, myocardial infarction, and anesthetic risks up to and including . Continued pain and possible dysfunction were explained. Specific risks of the procedure including later recurrence of deformity. No guarantees were offered. If hardware used, discussed risk of failure/ breakage and possible need for removal. If complications occur, the patient understands the need for further treatment, possible further surgery. Patient verbalizes understanding and wishes to proceed. PLAN: Right toe debridement with application of graft (3) Type 2 diabetes with complication: Code(s): E11.8 - Type 2 diabetes mellitus with unspecified complications Status: Acute Subjective Subjective Date/Time Seen: 09/04/22 08:34 Post Op day: 2 Principal diagnosis: right hallux infection Interval history: problems with IV overnight otherwise no complaints with the right foot. Exam Const: General: comfortable and no acute distress Resp: Effort & Inspection: normal respiratory effort Cardio: Rate: regular rate Rhythm: regular rhythm GI: GI Palp: Yes Soft to palpation and No Tenderness to palpation present (GI) Skin: Wounds: wounds noted Extrem: Other: Right hallux with plantar incision well approximated. Surround tissue macerated. Erythema to the great toe. No extension to the midfoot. Objective Data Vital Signs Vital Signs: Vital Signs - 24 hr 09/03/22 09:08 09/03/22 09:00 09/03/22 09:25 Temperature 97.6 F Pulse Rate 72 Respiratory Rate 18 Blood Pressure 120/88 Pulse Oximetry 99 99 Oxygen Delivery Room Air 09/03/22 14:00 09/03/22 20:10 09/03/22 20:00 Temperature 97.5 F L Pulse Rate 100 72 Respiratory Rate 18 Blood Pressure 106/46 L Pulse Oximetry 72 L Oxygen Delivery Room Air 09/03/22 21:50 09/04/22 02:02 09/04/22 07:01 Temperature 97.3 F L 97.7 F 97.2 F L Pulse Rate 70 64 56 L Respiratory Rate 20 20 20 Blood Pressure 128/72 116/52 L 118/64 Pulse Oximetry 98 99 98 Oxygen Delivery Intake/Output Intake/Output: Intake & Output 09/01/22 09/02/22 09/03/22 09/04/22 23:59 23:59 23:59 23:59 Intake Total 2570 47 2410 800 Output Total 250 Balance 2570 4320 2410 800 Meds/Results Medications: Active Medications Generic Name Dose Route Start Last Admin Trade Name Freq PRN Reason Stop Dose Admin Acetaminophen 650 mg 09/02/22 09:54 09/04/22 00:50 Acetaminophen 325 Mg Tablet PO 650 mg Q6H PRN Administration Pain or Fever Hydrocodone Bitart/Acetaminophen 1 tab 09/02/22 09:54 Hydrocodone/Acetaminophen (*Crx) 5-325 Mg Tablet PO Q3H PRN Pain Rated 4-6 Albuterol 2 puff 08/31/22 22:45 Albuterol Sulfate (*Sp) Aerosol 1 Puff INHALATION Q6H PRN Shortness Of Breath Atenolol 50 mg 08/31/22 22:50 09/03/22 20:10 Atenolol 50 Mg Tablet BY MOUTH 50 mg HS SIVAN Administration Benzonatate 100 mg 09/02/22 17:00 08/22
[2022-09-04] MEDS: FLUTICASONE PROPIONATE 0.05% NA SPR 16 GM BTL (*BKC) 1 SPRAY NASAL ×2 (08:35→20:31)
[2022-09-04 08:38] LABS: Glucose Point of Care 171 mg/dl (65-105)
[2022-09-04] MEDS: BENZONATATE 100 MG CAPSULE PO ×3 (09:14→17:16)
[2022-09-04 10:10] VITALS: BMI 31.6
--- NOTE | 2022-09-04 10:45 | P.PNIM_ITS ---
Progress Note: A&P Assessment and Plan (1) Infection of great toe: Code(s): L08.9 - Local infection of the skin and subcutaneous tissue, unspecified Status: Acute Assessment and Plan: * patient had a callus of the right great toe which was infected * POD 2 * x-ray (08/31/22) skin ulceration with deeper extension of soft tissue gas in the distal phalanx of the right great toe without evidence of osteomyelitis * appreciate orthopedic surgery consultation * s/p excisional debridement of right great toe in the OR on 09/02 * preliminary wound cultures reveal mix of organisms of questionable significance with no detection of Staph aureus, beta-hemolytic strep, or Pseudomonas. Final culture results pending * continue cefepime, Flagyl converted to PO * blood cultures negative to date. * Wound culture appears to be inconclusive * leukocytosis resolved, afebrile * CRP trending down to 7.3 (09/03/22), Repeat in the am * planning for return to OR for graft application (2) DM2 (diabetes mellitus, type 2): Code(s): E11.9 - Type 2 diabetes mellitus without complications Status: Acute Assessment and Plan: * uncontrolled. A1c is 11.2. * Continue Accu-Cheks, sliding scale insulin, hypoglycemic protocol * Continue Lantus to 22 units q.h.s. * NovoLog 7 units scheduled with meals * consult to community nutrition educator. Appreciate recommendations * home metformin on hold * Continue to trend glucose, adjust as indicated (3) Influenza A: Code(s): J10.1 - Influenza due to other identified influenza virus with other respiratory manifestations Status: Acute Assessment and Plan: * influenza A PCR positive on 08/30/2022 * CXR (08/19/22) pulmonary opacities which may represent mild bronchiolitis and possible atypical infection * Repeat chest xray * continue Tamiflu for 5 days. Currently day 3 * supportive care. bronchodilators, expectorants, incentive spirometry, cornet valve * no oxygen requirement (4) HTN (hypertension) with goal to be determined: Code(s): I10 - Essential (primary) hypertension Status: Chronic Assessment and Plan: * blood pressure is stable, currently 118/64 * Continue home lisinopril-hydrochlorothiazide and atenolol * Trend blood pressure, adjust therapy as indicated (5) Asthma: Code(s): J45.909 - Unspecified asthma, uncomplicated Status: Chronic Assessment and Plan: * Not in acute exacerbation * albuterol as needed * Trend respiratory status (6) Hyperlipidemia: Code(s): E78.5 - Hyperlipidemia, unspecified Status: Chronic Assessment and Plan: * no acute issues * Continue simvastatin Plan Diarrhea probably from antibiotics, probiotic added Time Spent With Patient Time with patient: Greater than 35 minutes Subjective Date/time seen: 09/04/221044 Interval history: 09/04/221044 patient seems to be doing well. Patient was in the chair. Patient denies any pain and stated that he did have a little tingling in his foot however he claims that to be peripheral neuropathy. He denies any chest pain, nausea, vomiting, constipation. He denies any Fevers or chills. He did state that he had sweats overnight however he feels that is more related to his elevated blood sugar. He also stated that he has been having diarrhea and would like to be star
--- NOTE | 2022-09-04 10:45 | PM.IMPN ---
Progress Note: A&P Assessment and Plan (1) Infection of great toe: Code(s): L08.9 - Local infection of the skin and subcutaneous tissue, unspecified Status: Acute Assessment and Plan: patient had a callus of the right great toe which was infected POD 2 x-ray (08/31/22) skin ulceration with deeper extension of soft tissue gas in the distal phalanx of the right great toe without evidence of osteomyelitis appreciate orthopedic surgery consultation s/p excisional debridement of right great toe in the OR on 09/02 preliminary wound cultures reveal mix of organisms of questionable significance with no detection of Staph aureus, beta-hemolytic strep, or Pseudomonas. Final culture results pending continue cefepime, Flagyl converted to PO blood cultures negative to date. Wound culture appears to be inconclusive leukocytosis resolved, afebrile CRP trending down to 7.3 (09/03/22), Repeat in the am planning for return to OR for graft application (2) DM2 (diabetes mellitus, type 2): Code(s): E11.9 - Type 2 diabetes mellitus without complications Status: Acute Assessment and Plan: uncontrolled. A1c is 11.2. Continue Accu-Cheks, sliding scale insulin, hypoglycemic protocol Continue Lantus to 22 units q.h.s. NovoLog 7 units scheduled with meals consult to family life educator. Appreciate recommendations home metformin on hold Continue to trend glucose, adjust as indicated (3) Influenza A: Code(s): J10.1 - Influenza due to other identified influenza virus with other respiratory manifestations Status: Acute Assessment and Plan: influenza A PCR positive on 08/30/2022 CXR (08/19/22) pulmonary opacities which may represent mild bronchiolitis and possible atypical infection Repeat chest xray continue Tamiflu for 5 days. Currently day 3 supportive care. bronchodilators, expectorants, incentive spirometry, cornet valve no oxygen requirement (4) HTN (hypertension) with goal to be determined: Code(s): I10 - Essential (primary) hypertension Status: Chronic Assessment and Plan: blood pressure is stable, currently 118/64 Continue home lisinopril-hydrochlorothiazide and atenolol Trend blood pressure, adjust therapy as indicated (5) Asthma: Code(s): J45.909 - Unspecified asthma, uncomplicated Status: Chronic Assessment and Plan: Not in acute exacerbation albuterol as needed Trend respiratory status (6) Hyperlipidemia: Code(s): E78.5 - Hyperlipidemia, unspecified Status: Chronic Assessment and Plan: no acute issues Continue simvastatin Plan Diarrhea probably from antibiotics, probiotic added Time Spent With Patient Time with patient: Greater than 35 minutes Subjective Date/time seen: 09/04/221044 Interval history: 09/04/221044 patient seems to be doing well. Patient was in the chair. Patient denies any pain and stated that he did have a little tingling in his foot however he claims that to be peripheral neuropathy. He denies any chest pain, nausea, vomiting, constipation. He denies any Fevers or chills. He did state that he had sweats overnight however he feels that is more related to his elevated blood sugar. He also stated that he has been having diarrhea and would like to be started on probiotics. 09/03/2022 Eric Santos is a 56-year-old male with history of type 2 diabetes mellitus, peripheral neuropathy, hypertension, hyperlipidemia, and asthma who is seen in follow-up for right great toe wound and influenza. He is doing well today. His pain is well controlled. Denies fever, chills.? No nausea or vomiting.? His shortness of breath has improved.? Congestion is improving.? Continues to endorse cough that is productive of clear phlegm.? He had a bowel movement today.? He has no additional concerns.
[2022-09-04] MEDS: INSULIN ASPART (*BKC) 100 UNITS/ML 7 UNITS SUB-Q ×2 (12:30→17:15)
[2022-09-04 12:36] LABS: Glucose Point of Care 181 mg/dl (65-105)
[2022-09-04 15:28] VITALS: BP 117/64; PULSE 74; RESP 18; TEMP 36.7; O2SAT 99
[2022-09-04 17:13] LABS: Glucose Point of Care 193 mg/dl (65-105)
[2022-09-04] MEDS: SACCHAROMYCES BOULARDII 250 MG CAPSULE PO (17:16)
[2022-09-04 20:00] VITALS: BP 124/54; PULSE 73; RESP 18; TEMP 36.9; O2SAT 97
[2022-09-04 20:31] VITALS: PULSE 74
[2022-09-04] MEDS: atenoloL 50 MG TABLET BY MOUTH (20:31)
[2022-09-04] MEDS: TAMSULOSIN HCL 0.4 MG CAPSULE PO (20:32)
[2022-09-04] MEDS: SIMVASTATIN 20 MG TABLET 40 MG BY MOUTH (20:32)
[2022-09-04] MEDS: INSULIN GLARGINE (*BKC) 100 UNITS/ML 22 UNITS SUB-Q (20:39)
[2022-09-04 21:04] LABS: Glucose Point of Care 246 mg/dl (65-105)
[2022-09-04 23:47] VITALS: BP 106/54; PULSE 72; RESP 18; TEMP 36.9; O2SAT 99
[2022-09-05] VITALS (12 sets, daily range): BP systolic 93–120; BP diastolic 55–68; PULSE 57–73; RESP 14–18; TEMP 36.2–37.1; O2SAT 96–100
[2022-09-05 00:43] LABS: Glucose Point of Care 158 mg/dl (65-105)
[2022-09-05 05:50] LABS: Basophils Percent Auto 0.4 % (0.2-1.2); Eosinophils Absolute Auto 0.2 K/mm3 (0-0.3); Eosinophils Percent Auto 1.9 % (0-4.4); Hematocrit 37.6 % (42.0-52.0); Hemoglobin 11.9 g/dL (14.0-18.0); Immature Granulocyte Absolute 0.03 K/mm3 (0.00-0.031); Immature Granulocyte Percent A 0.4 % (0-0.5); Lymphocytes Absolute Auto 2.18 K/mm3 (0.9-3.2); Lymphocytes Percent Auto 28.2 % (18.3-44.2); Mean Corpuscular HGB Conc 31.6 g/dl (32-36); Mean Corpuscular Hemoglobin 27.8 pg (26-34); Mean Corpuscular Volume 87.9 fl (80-100); Mean Platelet Volume 9.4 fl (7.4-10.4); Monocytes Absolute Auto 0.7 K/mm3 (0.1-0.6); Monocytes Percent Auto 8.8 % (2.6-8.5); Neutrophils Absolute Auto 4.7 K/mm3 (1.3-6.7); Neutrophils Percent Auto 60.3 % (45.5-73.1); Platelet Count Result 224 k/mm3 (150-375); Red Blood Count 4.28 M/mm3 (4.6-6.20); Red Cell Distribution Width 12.8 % (11.5-14.5); White Blood Count 7.7 K/mm3 (4.5-10.0)
[2022-09-05 05:57] LABS: Alanine Aminotransferase 60 U/L (6-50); Albumin Level 3.7 g/dL (3.5-5.1); Alkaline Phosphatase 64 U/L (38-126); Anion Gap 5 mmol/L (8-16); Aspartate Amino Transferase 59 U/L (17-59); Bilirubin,Total 0.5 mg/dL (0.2-1.3); Blood Urea Nitrogen 15 mg/dL (9-20); Calcium 8.8 mg/dL (8.4-10.2); Carbon Dioxide 28 mmol/L (22-30); Chloride 101 mmol/L (98-107); Estimated CRCL calculation 76 ml/min; Estimated Glomerular Filt Rate > 60; Glucose 155 mg/dL (65-110); Magnesium 2.1 mg/dL (1.6-2.3); Potassium 3.7 mmol/L (3.4-5.0); Sodium 134 mmol/L (137-145)
[2022-09-05] MEDS: OSELTAMIVIR PHOSPHATE 75 MG CAPSULE PO ×2 (06:02→17:25)
[2022-09-05] MEDS: metroNIDAZOLE 250 MG TABLET 500 MG PO ×3 (06:02→20:32)
[2022-09-05 06:19] LABS: Glucose Point of Care 151 mg/dl (65-105)
--- NOTE | 2022-09-05 07:03 | WPDHPUPDATE1 ---
History and Physical Update Update Date/Time: 09/05/22 07:03 History and Physical has been reviewed, including an updated exam of the patient. There are NO changes in the patient's condition. Risks, benefits, and alternatives have been discussed and questions answered. Patient agrees to proceed with procedure.
[2022-09-05] MEDS: INSULIN ASPART (*BKC) 100 UNITS/ML 7 UNITS SUB-Q ×3 (09:03→17:23)
[2022-09-05] MEDS: FLUTICASONE PROPIONATE 0.05% NA SPR 16 GM BTL (*BKC) 1 SPRAY NASAL ×2 (09:05→20:33)
[2022-09-05] MEDS: SACCHAROMYCES BOULARDII 250 MG CAPSULE PO ×3 (09:05→17:23)
[2022-09-05] MEDS: BENZONATATE 100 MG CAPSULE PO ×3 (09:06→17:23)
[2022-09-05] MEDS: guaiFENesin 12 HR 600 MG TABCR PO ×2 (09:06→20:31)
[2022-09-05] MEDS: GABAPENTIN 300 MG CAPSULE BY MOUTH ×2 (09:06→20:33)
[2022-09-05] MEDS: lisinopriL 20 MG TABLET PO (09:06)
[2022-09-05] MEDS: hydroCHLOROthiazide 12.5 MG CAPSULE PO (09:06)
[2022-09-05] MEDS: ACETAMINOPHEN 325 MG TABLET 650 MG PO ×2 (09:07→17:21)
--- NOTE | 2022-09-05 10:52 | WPDANESEPPF ---
Anes - Initial Pre Proc Eval Procedure: Operation Date: 09/02/22 11:30 Proposed Procedures p Incision and Debridement Right Great Toe - Carl Adair MD Operation Date: 09/05/22 12:00 Proposed Procedures p Right Great Toe Debridement with Application of Graft - Carl Adair MD Date/Time: 09/05/22 10:52 Surgeon: Lainey Youngblood PA-C Pre Op Diagnosis: Great Toe Infection Patient Data Age: 56 Gender: M Height: 1.75 m Weight: 97 kg Last Vital Signs Temp 37.1 C 09/05/22 09:30 Pulse 58 L 09/05/22 09:30 Resp 18 09/05/22 09:30 BP 112/64 09/05/22 09:30 Pulse Ox 96 09/05/22 09:30 O2 Del Method Room Air 09/04/22 08:10 O2 Flow Rate 10 09/02/22 09:14 Allergies Allergy/AdvReac Type Severity Reaction Status Date / Time No Known Allergies Allergy Verified 09/05/22 10:39 Home Medications Medication Instructions Recorded Confirmed Type albuterol sulfate 90 mcg/actuation 90 mcg inhalation DIRECTED 08/19/22 08/31/22 History aerosol inhaler atenolol 50 mg tablet 50 mg HS 08/19/22 08/31/22 History gabapentin 300 mg capsule 300 mg BID 08/19/22 08/31/22 History lisinopril 20 1 tablet DAILY 08/19/22 08/31/22 History mg-hydrochlorothiazide 12.5 mg tablet metformin 1,000 mg tablet 1,000 mg BID 08/19/22 08/31/22 History simvastatin 40 mg tablet 40 mg HS 08/19/22 08/31/22 History tamsulosin 0.4 mg capsule 0.4 mg PO HS 08/19/22 08/31/22 History Laboratory Tests 09/04/22 09/04/22 09/04/22 12:09 16:50 20:34 WBC RBC Hgb Hct MCV MCH MCHC RDW Plt Count MPV Immature Gran % (Auto) Neut % (Auto) Lymph % (Auto) Beckham % (Auto) Eos % (Auto) Baso % (Auto) Lymph # (Auto) Beckham # (Auto) Eos # (Auto) Baso # (Auto) Abs Immat Gran (auto) Absolute Neuts (auto) Absolute Nucleated RBC Nucleated RBC % Sodium Potassium Chloride Carbon Dioxide Anion Gap BUN Creatinine Estim Creat Clear Calc Estimated GFR Glucose POC Capillary Glucose 181 mg/dl H mg/dl 193 mg/dl H mg/dl 246 mg/dl H mg/dl (65-105) (65-105) (65-105) Calcium Magnesium Total Bilirubin AST ALT Alkaline Phosphatase Total Protein Albumin 09/05/22 09/05/22 09/05/22 00:12 04:50 04:50 WBC 7.7 K/mm3 K/mm3 (4.5-10.0) RBC 4.28 M/mm3 L M/mm3 (4.6-6.20) Hgb 11.9 g/dL L g/dL (14.0-18.0) Hct 37.6 % L % (42.0-52.0) MCV 87.9 fl fl (80-100) MCH 27.8 pg pg (26-34) MCHC 31.6 g/dl L g/dl (32-36) RDW 12.8 % % (11.5-14.5) Plt Count 224 k/mm3 k/mm3 (150-375) MPV 9.4 fl fl (7.4-10.4) Immature Gran % (Auto) 0.4 % % (0-0.5) Neut % (Auto) 60.3 % % (45.5-73.1) Lymph % (Auto) 28.2 % % (18.3-44.2) Beckham % (Auto) 8.8 % H % (2.6-8.5) Eos % (Auto) 1.9 % % (0-4.4) Baso % (Auto) 0.4 % % (0.2-1.2) Lymph # (Auto) 2.18 K/mm3 K/mm3 (0.9-3.2) Beckham # (Auto) 0.7 K/mm3 H K/mm3 (0.1-0.6) Eos # (Auto) 0.2 K/mm3 K/mm3 (0-0.3) Baso # (Auto) 0.0 K/mm3 K/mm3 (0.0-0.1) Abs Immat Gran (auto) 0.03 K/mm3 K/mm3 (0.00-0.031) Absolute Neuts (auto) 4.7 K/mm3 K/mm3 (1.3-6.7) Absolute Nucleated RBC 0.0 K/mm3 K/mm3 (0.0-0.012) Nucleated RBC % 0.0 % % (0.0-0.2) Sodium 134 mmol/L L mmol/L (137-145) Potassium 3.7 mmol/L mmol/L (3.4-5.0) Chloride 10
[2022-09-05] MEDS: LACTATED RINGERS 1,000 ML 30 ML IV CONT (10:59)
[2022-09-05 11:05] LABS: Glucose Point of Care 132 mg/dl (65-105)
--- NOTE | 2022-09-05 12:02 | W.PM.PROC2 ---
Procedure Note - Detailed Date of Procedure 09/05/22 Pre-op Diagnosis Great Toe Infection Post-op Diagnosis Same Procedure Performed excisional Debridement of right great toe and application of graft Surgeon Carl Adair MD Settlement Clerk 1st assist Anesthesia General Indications 56-year-old gentleman with diabetes and peripheral neuropathy and right great toe infection. Status post debridement. Presents now for planned repeat debridement and application graft to cover the wound. Findings 3 x 3 cm ulcer on the plantar lateral aspect of the hallux. 2 cm depth. Description of Procedure Patient identified in the preoperative holding.? Informed consent given.? Operative extremity marked.? Patient received intravenous antibiotics.? Patient brought to the operating room where underwent? Intravenous sedation by anesthesia team.? Positioned supine on operating room table.? Time-out performed confirming the patient, site of the surgery and the plan.? Right foot prepped and draped usual sterile surgical fashion using a Betadine prep solution.?3 x 3cm wound right great toe debrided with 15 blade knife. ? Infected and devitalized subcutaneous tissue and muscle sharply excised with 15 blade knife and rongeur and passed off. Wound thoroughly irrigated with antibiotic solution.? No proximal tracking noted from the hallux to the foot.? No evidence of involvement of the joints.? Wound then grafted with micro matrix powder which was prepared on the back table and inserted into the undermining portion of the wound. Wound then covered with the bilayer xenograft skin substitute and sutured into place with 4-0 Monocryl interrupted suture. Sterile dressing applied. Total contact cast applied.? The patient was then woken from anesthesia, extubated and taken to the recovery room in stable condition.? All sponge, needle, instrument counts were correct at the end of the case. Implants By layer xenograft skin substitute, mitromatrix powder. Estimated Blood Loss -5.0 Tourniquet Time 0 Urine Output 250 Drains No Packing No Pathology None sent Complications None Condition Stable Disposition PACU
[2022-09-05 12:21] LABS: Glucose Point of Care 140 mg/dl (65-105)
[2022-09-05 12:21] LABS: Glucose Point of Care 143 mg/dl (65-105)
--- NOTE | 2022-09-05 15:15 | PM.IMPN ---
Progress Note: A&P Assessment and Plan (1) Infection of great toe: Code(s): L08.9 - Local infection of the skin and subcutaneous tissue, unspecified Status: Acute Assessment and Plan: patient had a callus of the right great toe which was infected POD 0 from graft procedure on 09/05/22 x-ray (08/31/22) skin ulceration with deeper extension of soft tissue gas in the distal phalanx of the right great toe without evidence of osteomyelitis appreciate orthopedic surgery consultation s/p excisional debridement of right great toe in the OR on 09/02 preliminary wound cultures reveal mix of organisms of questionable significance with no detection of Staph aureus, beta-hemolytic strep, or Pseudomonas. Final culture results pending continue cefepime, Flagyl converted to PO, consider Levaquin blood cultures negative to date. Wound culture appears to be inconclusive leukocytosis resolved, afebrile CRP trending down to 7.3 (09/03/22), Repeat in the am Skin grafting scheduled for today (2) DM2 (diabetes mellitus, type 2): Code(s): E11.9 - Type 2 diabetes mellitus without complications Status: Acute Assessment and Plan: Glucose 155 uncontrolled. A1c is 11.2. Continue Accu-Cheks, sliding scale insulin, hypoglycemic protocol Continue Lantus to 22 units q.h.s. NovoLog 7 units scheduled with meals consult to breastfeeding educator. Appreciate recommendations home metformin on hold Continue to trend glucose, adjust as indicated (3) Influenza A: Code(s): J10.1 - Influenza due to other identified influenza virus with other respiratory manifestations Status: Acute Assessment and Plan: influenza A PCR positive on 08/30/2022 CXR (08/19/22) pulmonary opacities which may represent mild bronchiolitis and possible atypical infection Repeat chest xray continue Tamiflu for 5 days. Currently day 4 supportive care. bronchodilators, expectorants, incentive spirometry, cornet valve no oxygen requirement (4) HTN (hypertension) with goal to be determined: Code(s): I10 - Essential (primary) hypertension Status: Chronic Assessment and Plan: blood pressure is stable, currently 100/55 Continue home lisinopril-hydrochlorothiazide and atenolol Trend blood pressure, adjust therapy as indicated (5) Asthma: Code(s): J45.909 - Unspecified asthma, uncomplicated Status: Chronic Assessment and Plan: Not in acute exacerbation albuterol as needed Trend respiratory status (6) Hyperlipidemia: Code(s): E78.5 - Hyperlipidemia, unspecified Status: Chronic Assessment and Plan: no acute issues Continue simvastatin Time Spent With Patient Time with patient: Greater than 35 minutes Subjective Date/time seen: 09/05/221514 Interval history: 09/05/221514 patient is doing well today. He denies any chest pain, shortness a breath, nausea, vomiting, diarrhea, constipation weakness fatigue. Patient did state that he felt like his foot was huge however she has lot of dressing. Currently denies any pain. Will try to convert patient to p.o. antibiotics 09/04/221044 patient seems to be doing well. Patient was in the chair. Patient denies any pain and stated that he did have a little tingling in his foot however he claims that to be peripheral neuropathy. He denies any chest pain, nausea, vomiting, constipation. He denies any Fevers or chills. He did state that he had sweats overnight however he feels that is more related to his elevated blood sugar. He also stated that he has been having diarrhea and would like to be started on probiotics. 09/03/2022 Eric Santos is a 56-year-old male with history of type 2 diabetes mellitus, peripheral neuropathy, hypertension, hyperlipidemia, and asthma who is seen in follow-up for right great toe wound and in
--- NOTE | 2022-09-05 15:15 | P.PNIM_ITS ---
Progress Note: A&P Assessment and Plan (1) Infection of great toe: Code(s): L08.9 - Local infection of the skin and subcutaneous tissue, unspecified Status: Acute Assessment and Plan: * patient had a callus of the right great toe which was infected * POD 0 from graft procedure on 09/05/22 * x-ray (08/31/22) skin ulceration with deeper extension of soft tissue gas in the distal phalanx of the right great toe without evidence of osteomyelitis * appreciate orthopedic surgery consultation * s/p excisional debridement of right great toe in the OR on 09/02 * preliminary wound cultures reveal mix of organisms of questionable significance with no detection of Staph aureus, beta-hemolytic strep, or Pseudomonas. Final culture results pending * continue cefepime, Flagyl converted to PO, consider Levaquin * blood cultures negative to date. * Wound culture appears to be inconclusive * leukocytosis resolved, afebrile * CRP trending down to 7.3 (09/03/22), Repeat in the am * Skin grafting scheduled for today (2) DM2 (diabetes mellitus, type 2): Code(s): E11.9 - Type 2 diabetes mellitus without complications Status: Acute Assessment and Plan: * Glucose 155 * uncontrolled. A1c is 11.2. * Continue Accu-Cheks, sliding scale insulin, hypoglycemic protocol * Continue Lantus to 22 units q.h.s. * NovoLog 7 units scheduled with meals * consult to certified adaptive physical educator. Appreciate recommendations * home metformin on hold * Continue to trend glucose, adjust as indicated (3) Influenza A: Code(s): J10.1 - Influenza due to other identified influenza virus with other respiratory manifestations Status: Acute Assessment and Plan: * influenza A PCR positive on 08/30/2022 * CXR (08/19/22) pulmonary opacities which may represent mild bronchiolitis and possible atypical infection * Repeat chest xray * continue Tamiflu for 5 days. Currently day 4 * supportive care. bronchodilators, expectorants, incentive spirometry, cornet valve * no oxygen requirement (4) HTN (hypertension) with goal to be determined: Code(s): I10 - Essential (primary) hypertension Status: Chronic Assessment and Plan: * blood pressure is stable, currently 100/55 * Continue home lisinopril-hydrochlorothiazide and atenolol * Trend blood pressure, adjust therapy as indicated (5) Asthma: Code(s): J45.909 - Unspecified asthma, uncomplicated Status: Chronic Assessment and Plan: * Not in acute exacerbation * albuterol as needed * Trend respiratory status (6) Hyperlipidemia: Code(s): E78.5 - Hyperlipidemia, unspecified Status: Chronic Assessment and Plan: * no acute issues * Continue simvastatin Time Spent With Patient Time with patient: Greater than 35 minutes Subjective Date/time seen: 09/05/221514 Interval history: 09/05/221514 patient is doing well today. He denies any chest pain, shortness a breath, nausea, vomiting, diarrhea, constipation weakness fatigue. Patient did state that he felt like his foot was huge however she has lot of dressing. Currently denies any pain. Will try to convert patient to p.o. antibiotics 09/04/22 1045 patient seems to be doing well. Patient was in the chair. Patient denies any pain and stated that he did have a little tingling in his foot however
--- NOTE | 2022-09-05 15:55 | ECG_ITS ---
Measurements Intervals Orla Rate: 63 P: 51 MD: 151 QRS: 21 QRSD: 105 T: 63 QT: 391 QTc: 401 Interpretive Statements SINUS RHYTHM NONSPECIFIC T-WAVE ABNORMALITY NO PREVIOUS ECG AVAILABLE FOR COMPARISON Electronically Signed On 09-05-2022 20:04:33 SOLUTION ENGINEER by Ann Mart M.D.
[2022-09-05] MEDS: levoFLOXacin 750 MG TABLET PO (17:22)
[2022-09-05 17:32] LABS: Glucose Point of Care 124 mg/dl (65-105)
[2022-09-05] MEDS: TAMSULOSIN HCL 0.4 MG CAPSULE PO (20:31)
[2022-09-05] MEDS: INSULIN GLARGINE (*BKC) 100 UNITS/ML 22 UNITS SUB-Q (20:31)
[2022-09-05] MEDS: SIMVASTATIN 20 MG TABLET 40 MG BY MOUTH (20:31)
[2022-09-05] MEDS: atenoloL 50 MG TABLET BY MOUTH (20:33)
[2022-09-05 20:41] LABS: Glucose Point of Care 206 mg/dl (65-105)
[2022-09-06 03:48] VITALS: BP 105/62; PULSE 58; RESP 18; TEMP 36.7; O2SAT 100
[2022-09-06] MEDS: ACETAMINOPHEN 325 MG TABLET 650 MG PO ×2 (04:18→12:05)
[2022-09-06] MEDS: metroNIDAZOLE 250 MG TABLET 500 MG PO ×2 (05:50→14:45)
[2022-09-06 05:58] LABS: Basophils Percent Auto 0.4 % (0.2-1.2); Eosinophils Absolute Auto 0.2 K/mm3 (0-0.3); Eosinophils Percent Auto 1.9 % (0-4.4); Hematocrit 36.8 % (42.0-52.0); Hemoglobin 11.9 g/dL (14.0-18.0); Immature Granulocyte Absolute 0.04 K/mm3 (0.00-0.031); Immature Granulocyte Percent A 0.5 % (0-0.5); Lymphocytes Absolute Auto 1.66 K/mm3 (0.9-3.2); Lymphocytes Percent Auto 20.5 % (18.3-44.2); Mean Corpuscular HGB Conc 32.3 g/dl (32-36); Mean Corpuscular Hemoglobin 28.7 pg (26-34); Mean Corpuscular Volume 88.7 fl (80-100); Mean Platelet Volume 9.1 fl (7.4-10.4); Monocytes Absolute Auto 0.7 K/mm3 (0.1-0.6); Monocytes Percent Auto 8.1 % (2.6-8.5); Neutrophils Absolute Auto 5.6 K/mm3 (1.3-6.7); Neutrophils Percent Auto 68.6 % (45.5-73.1); Platelet Count Result 229 k/mm3 (150-375); Red Blood Count 4.15 M/mm3 (4.6-6.20); Red Cell Distribution Width 13.2 % (11.5-14.5); White Blood Count 8.1 K/mm3 (4.5-10.0)
[2022-09-06 06:22] LABS: Alanine Aminotransferase 85 U/L (6-50); Albumin Level 3.6 g/dL (3.5-5.1); Alkaline Phosphatase 61 U/L (38-126); Anion Gap 7 mmol/L (8-16); Aspartate Amino Transferase 85 U/L (17-59); Bilirubin,Total 0.5 mg/dL (0.2-1.3); Blood Urea Nitrogen 17 mg/dL (9-20); Calcium 8.5 mg/dL (8.4-10.2); Carbon Dioxide 25 mmol/L (22-30); Chloride 102 mmol/L (98-107); Estimated CRCL calculation 76 ml/min; Estimated Glomerular Filt Rate > 60; Glucose 143 mg/dL (65-110); Magnesium 2.2 mg/dL (1.6-2.3); Potassium 3.7 mmol/L (3.4-5.0); Sodium 134 mmol/L (137-145)
[2022-09-06] MEDS: metFORMIN HCL 500 MG TABLET 1000 MG PO (08:13)
[2022-09-06] MEDS: GABAPENTIN 300 MG CAPSULE BY MOUTH (08:14)
[2022-09-06] MEDS: BENZONATATE 100 MG CAPSULE PO ×2 (08:14→12:05)
[2022-09-06] MEDS: FLUTICASONE PROPIONATE 0.05% NA SPR 16 GM BTL (*BKC) 1 SPRAY NASAL (08:14)
[2022-09-06] MEDS: guaiFENesin 12 HR 600 MG TABCR PO (08:14)
[2022-09-06] MEDS: levoFLOXacin 750 MG TABLET PO (08:15)
[2022-09-06] MEDS: SACCHAROMYCES BOULARDII 250 MG CAPSULE PO ×2 (08:15→12:05)
[2022-09-06 09:00] LABS: Glucose Point of Care 148 mg/dl (65-105)
--- NOTE | 2022-09-06 10:14 | WPDANESPN ---
Anes - Prog Note Post-Op Date/Time: 09/06/22 10:14 Cardiovascular status: normal Respiratory status: normal Airway patency: baseline Mental status: baseline Post-Op hydration status: normal Vital Signs: Last Vital Signs Temp 36.7 C 09/06/22 03:48 Pulse 58 L 09/06/22 03:48 Resp 18 09/06/22 03:48 BP 105/62 09/06/22 03:48 Pulse Ox 100 09/06/22 03:48 O2 Del Method Room Air 09/05/22 12:53 O2 Flow Rate 10 09/02/22 09:14 Pain Score (VAS): 0 I/O: Intake & Output 09/05/22 09/06/22 09/06/22 23:59 07:59 15:59 Intake Total 670 250 Balance 670 250 Laboratory Tests 09/06/22 05:18 09/06/22 05:18 09/05/22 09/05/22 09/05/22 11:02 12:18 12:19 WBC RBC Hgb Hct MCV MCH MCHC RDW Plt Count MPV Immature Gran % (Auto) Neut % (Auto) Lymph % (Auto) Holmes % (Auto) Eos % (Auto) Baso % (Auto) Lymph # (Auto) Holmes # (Auto) Eos # (Auto) Baso # (Auto) Abs Immat Gran (auto) Absolute Neuts (auto) Absolute Nucleated RBC Nucleated RBC % Sodium Potassium Chloride Carbon Dioxide Anion Gap BUN Creatinine Estim Creat Clear Calc Estimated GFR Glucose POC Capillary Glucose 132 H 143 H 140 H Calcium Magnesium Total Bilirubin AST ALT Alkaline Phosphatase Total Protein Albumin 09/05/22 09/05/22 09/06/22 17:20 20:29 05:18 WBC 8.1 RBC 4.15 L Hgb 11.9 L Hct 36.8 L MCV 88.7 MCH 28.7 MCHC 32.3 RDW 13.2 Plt Count 229 MPV 9.1 Immature Gran % (Auto) 0.5 Neut % (Auto) 68.6 Lymph % (Auto) 20.5 Holmes % (Auto) 8.1 Eos % (Auto) 1.9 Baso % (Auto) 0.4 Lymph # (Auto) 1.66 Holmes # (Auto) 0.7 H Eos # (Auto) 0.2 Baso # (Auto) 0.0 Abs Immat Gran (auto) 0.04 H Absolute Neuts (auto) 5.6 Absolute Nucleated RBC 0.0 Nucleated RBC % 0.0 Sodium Potassium Chloride Carbon Dioxide Anion Gap BUN Creatinine Estim Creat Clear Calc Estimated GFR Glucose POC Capillary Glucose 124 H 206 H Calcium Magnesium Total Bilirubin AST ALT Alkaline Phosphatase Total Protein Albumin 09/06/22 09/06/22 05:18 08:50 WBC RBC Hgb Hct MCV MCH MCHC RDW Plt Count MPV Immature Gran % (Auto) Neut % (Auto) Lymph % (Auto) Holmes % (Auto) Eos % (Auto) Baso % (Auto) Lymph # (Auto) Holmes # (Auto) Eos # (Auto) Baso # (Auto) Abs Immat Gran (auto) Absolute Neuts (auto) Absolute Nucleated RBC Nucleated RBC % Sodium 134 L Potassium 3.7 Chloride 102 Carbon Dioxide 25 Anion Gap 7 L BUN 17 Creatinine 1.10 Estim Creat Clear Calc 76 Estimated GFR > 60 Glucose 143 H POC Capillary Glucose 148 H Calcium 8.5 Magnesium 2.2 Total Bilirubin 0.5 AST 85 H ALT 85 H Alkaline Phosphatase 61 Total Protein 7.0 Albumin 3.6 Microbiology 08/31/22 17:32 Blood Blood Culture - Final 08/31/22 17:32 Blood Blood Culture - Final 08/31/22 18:14 Toe Right Great Wound Culture - Final Pseudomonas aeruginosa Patient Feedback: Patient satisfied with anesthetic care.
[2022-09-06] MEDS: hydroCHLOROthiazide 12.5 MG CAPSULE PO (10:56)
[2022-09-06] MEDS: lisinopriL 20 MG TABLET PO (10:56)
[2022-09-06] MEDS: glipiZIDE XL 5 MG TABCR PO (10:56)
--- NOTE | 2022-09-06 11:00 | PM.DS ---
DS: Admitting Diagnosis Discharge Date 09/06/22 1100 Admitting Diagnosis Infection of the right great toe DS: Discharge Diagnosis Discharge Diagnosis (1) Infection of great toe: Code(s): L08.9 - Local infection of the skin and subcutaneous tissue, unspecified Status: Acute Assessment and Plan: patient had a callus of the right great toe which was infected POD 0 from graft procedure on 09/05/22 x-ray (08/31/22) skin ulceration with deeper extension of soft tissue gas in the distal phalanx of the right great toe without evidence of osteomyelitis appreciate orthopedic surgery consultation s/p excisional debridement of right great toe in the OR on 09/02 preliminary wound cultures reveal mix of organisms of questionable significance with no detection of Staph aureus, beta-hemolytic strep, or Pseudomonas. Final culture results pending continue cefepime, Flagyl converted to PO, consider Levaquin blood cultures negative to date. Wound culture appears to be inconclusive leukocytosis resolved, afebrile CRP trending down to 7.3 (09/03/22), Repeat in the am Skin grafting scheduled for today (2) DM2 (diabetes mellitus, type 2): Code(s): E11.9 - Type 2 diabetes mellitus without complications Status: Acute Assessment and Plan: Glucose 155 uncontrolled. A1c is 11.2. Continue Accu-Cheks, sliding scale insulin, hypoglycemic protocol Continue Lantus to 22 units q.h.s. NovoLog 7 units scheduled with meals consult to special education paraeducator. Appreciate recommendations home metformin on hold Continue to trend glucose, adjust as indicated (3) Influenza A: Code(s): J10.1 - Influenza due to other identified influenza virus with other respiratory manifestations Status: Acute Assessment and Plan: influenza A PCR positive on 08/30/2022 CXR (08/19/22) pulmonary opacities which may represent mild bronchiolitis and possible atypical infection Repeat chest xray continue Tamiflu for 5 days. Currently day 4 supportive care. bronchodilators, expectorants, incentive spirometry, cornet valve no oxygen requirement (4) HTN (hypertension) with goal to be determined: Code(s): I10 - Essential (primary) hypertension Status: Chronic Assessment and Plan: blood pressure is stable, currently 100/55 Continue home lisinopril-hydrochlorothiazide and atenolol Trend blood pressure, adjust therapy as indicated (5) Asthma: Code(s): J45.909 - Unspecified asthma, uncomplicated Status: Chronic Assessment and Plan: Not in acute exacerbation albuterol as needed Trend respiratory status (6) Hyperlipidemia: Code(s): E78.5 - Hyperlipidemia, unspecified Status: Chronic Assessment and Plan: no acute issues Continue simvastatin DS: Summary Hospital Course Hospital Course: Patient is a 56-year-old male with a past medical history of hypertension, diabetes who presented to the ED with complaints lower extremity swelling. Upon arrival of the patient did have a wound on his right total. X-ray did show soft tissue gas without evidence of osteomyelitis. Orthopedics was consulted and patient had a debridement. Patient was also started on IV antibiotics and cultures were taken. Wound culture did grow Pseudomonas aeruginosa. Patient was also noted to have an upper respiratory infection and did test positive for flu. Patient was started on Tamiflu. Patient also later went back to the OR for skin graft. Patient has been doing well walking and getting up to the chair. Diabetes was noted to be uncontrolled however is better controlled at this time. A1c was 11.2. Patient was started on Lantus and insulin sliding scale. software educator did come and see the patient. Antibiotics were switched to p.o. Levaquin, and Flagyl. Currently patient feels well and denies any ch
--- NOTE | 2022-09-06 11:00 | P.DS_ITS ---
DS: Admitting Diagnosis Discharge Date 09/06/22 1100 Admitting Diagnosis Infection of the right great toe DS: Discharge Diagnosis Discharge Diagnosis (1) Infection of great toe: Code(s): L08.9 - Local infection of the skin and subcutaneous tissue, unspecified Status: Acute Assessment and Plan: * patient had a callus of the right great toe which was infected * POD 0 from graft procedure on 09/05/22 * x-ray (08/31/22) skin ulceration with deeper extension of soft tissue gas in the distal phalanx of the right great toe without evidence of osteomyelitis * appreciate orthopedic surgery consultation * s/p excisional debridement of right great toe in the OR on 09/02 * preliminary wound cultures reveal mix of organisms of questionable significance with no detection of Staph aureus, beta-hemolytic strep, or Pseudomonas. Final culture results pending * continue cefepime, Flagyl converted to PO, consider Levaquin * blood cultures negative to date. * Wound culture appears to be inconclusive * leukocytosis resolved, afebrile * CRP trending down to 7.3 (09/03/22), Repeat in the am * Skin grafting scheduled for today (2) DM2 (diabetes mellitus, type 2): Code(s): E11.9 - Type 2 diabetes mellitus without complications Status: Acute Assessment and Plan: * Glucose 155 * uncontrolled. A1c is 11.2. * Continue Accu-Cheks, sliding scale insulin, hypoglycemic protocol * Continue Lantus to 22 units q.h.s. * NovoLog 7 units scheduled with meals * consult to ready to wear department manager. Appreciate recommendations * home metformin on hold * Continue to trend glucose, adjust as indicated (3) Influenza A: Code(s): J10.1 - Influenza due to other identified influenza virus with other respiratory manifestations Status: Acute Assessment and Plan: * influenza A PCR positive on 08/30/2022 * CXR (08/19/22) pulmonary opacities which may represent mild bronchiolitis and possible atypical infection * Repeat chest xray * continue Tamiflu for 5 days. Currently day 4 * supportive care. bronchodilators, expectorants, incentive spirometry, cornet valve * no oxygen requirement (4) HTN (hypertension) with goal to be determined: Code(s): I10 - Essential (primary) hypertension Status: Chronic Assessment and Plan: * blood pressure is stable, currently 100/55 * Continue home lisinopril-hydrochlorothiazide and atenolol * Trend blood pressure, adjust therapy as indicated (5) Asthma: Code(s): J45.909 - Unspecified asthma, uncomplicated Status: Chronic Assessment and Plan: * Not in acute exacerbation * albuterol as needed * Trend respiratory status (6) Hyperlipidemia: Code(s): E78.5 - Hyperlipidemia, unspecified Status: Chronic Assessment and Plan: * no acute issues * Continue simvastatin DS: Summary Hospital Course Hospital Course: Patient is a 56-year-old male with a past medical history of hypertension, diabetes who presented to the ED with complaints lower extremity swelling. Upon arrival of the patient did have a wound on his right total. X-ray did show soft tissue gas without evidence of osteomyelitis. Orthopedics was consulted and patient had a debridement. Patient was also started on IV antibiotics and cultures were taken. Wound culture did grow Pseudomonas aeruginosa. Patient was
--- NOTE | 2022-09-06 11:06 | PM.PNORT ---
Progress Note: A&P Assessment and Plan (1) Diabetic foot infection: Code(s): E11.628 - Type 2 diabetes mellitus with other skin complications; L08.9 - Local infection of the skin and subcutaneous tissue, unspecified Status: Acute Assessment and Plan: Continue PT/OT. PWB with TCC. Walker for offloading. Pain control. Elevate. Incentive Spirometry Use reviewed. Bowel Regimen. Transition to oral antibiotics prior to discharge. TCC in place. Keep c/d/i. Dispo: Home Follow up in the [facility] [place] wound clinic. (2) Type 2 diabetes with complication: Code(s): E11.8 - Type 2 diabetes mellitus with unspecified complications Status: Acute Assessment and Plan: Needs PCP arranged for DM control. (3) Obesity: Code(s): E66.9 - Obesity, unspecified Status: Acute (4) Influenza A: Code(s): J10.1 - Influenza due to other identified influenza virus with other respiratory manifestations Status: Acute Assessment and Plan: On precautions. Doing well. Subjective Subjective Date/Time Seen: 09/06/22 11:06 Interval history: POD #4: Excision debridement of right great toe POD #1: Excisional Debridement of right great toe and application of graft and TCC application No new complaints. Pain well controlled. Ready for d/c home. Tolerated TCC well. Review of Systems Review of Systems: All systems reviewed & are unremarkable except as noted in HPI and below Exam Const: General: comfortable and no acute distress Resp: Effort & Inspection: normal respiratory effort Cardio: Rate: regular rate Rhythm: regular rhythm GI: GI Palp: Yes Soft to palpation and No Tenderness to palpation present (GI) Skin: Wounds: wounds noted Extrem: Other: Right Foot TCC in place. Outer fracture boot layer in place. Objective Data Vital Signs Vital Signs: Vital Signs - 24 hr 09/05/22 11:59 09/05/22 12:10 09/05/22 12:40 Temperature 36.2 C L Pulse Rate 65 63 59 L Respiratory Rate 14 18 14 Blood Pressure 116/68 93/58 L 108/64 Pulse Oximetry 99 99 100 Oxygen Delivery Room Air Room Air Room Air 09/05/22 12:53 09/05/22 12:25 09/05/22 13:06 Temperature 36.6 C Pulse Rate 57 L 62 61 Respiratory Rate 16 14 16 Blood Pressure 103/61 106/68 109/57 L Pulse Oximetry 100 100 100 Oxygen Delivery Room Air Room Air 09/05/22 20:33 09/05/22 21:00 09/05/22 23:43 Temperature 36.9 C 36.8 C Pulse Rate 70 73 62 Respiratory Rate 18 18 Blood Pressure 106/57 L 109/59 L Pulse Oximetry 98 99 Oxygen Delivery 09/06/22 03:48 Temperature 36.7 C Pulse Rate 58 L Respiratory Rate 18 Blood Pressure 105/62 Pulse Oximetry 100 Oxygen Delivery Intake/Output Intake/Output: Intake & Output 09/03/22 09/04/22 09/05/22 09/06/22 23:59 23:59 23:59 23:59 Intake Total 2410 2200 1120 490 Output Total 250 Balance 2410 2200 870 490 Meds/Results Medications: Active Medications Generic Name Dose Route Start Last Admin Trade Name Freq PRN Reason Stop Dose Admin Acetaminophen 650 mg 09/02/22 09:54 09/06/22 04:18 Acetaminophen 325 Mg Tablet PO 650 mg Q6H PRN Administration Pain or Fever Hydrocodone Bitart/Acetaminophen 1 tab 09/02/22 09:54 Hydrocodone/Acetaminophen (*Crx) 5-325 Mg Tablet PO Q3H PRN Pain Rated 4-6 Albuterol 2 puff 08/31/22 22:45 Albuterol Sulfate (*Sp) Aerosol 1 Puff INHALATION Q6H PRN Shortness Of Breath Atenolol 50 mg 08/31/22 22:50 09/05/22 20:33 Atenolol 50 Mg Tablet BY MOUTH 50 mg HS SIVAN Administration Benzonatate 100 mg 09/02/22 17:00 09/06/22 08:14 Benzonatate 100 Mg Capsule PO 100 mg TID SIVAN Administration Dextrose 12.5 gm 09/01/22 02:00 Dextrose 50% 25 Gm/50 Ml Syringe IV PUSH PRN PRN Hypoglycemia Protocol Fluticasone Propionate 1 spray 09/01/22 21:00 09/06/22 08:14 Fluticasone Propionate 0.05% Na Spr 16 Gm Btl (*Bkc) NASAL 1 spray Q
[2022-09-06 12:21] LABS: Glucose Point of Care 120 mg/dl (65-105)
[2022-09-06 14:46] VITALS: BP 116/70; PULSE 72; RESP 18; TEMP 36.6; O2SAT 99
== END 2022-09-06 16:35 | disposition home or self-care (01) | DRG 574 ==
LOC: ANHED 18:06 → ANH3MEDSUR 20:12 → ANH2MED 20:17
PROVIDERS: Nurse Practitioner; Orthopaedic Surgery; Physician Assistant; Admitting Provider Internal Medicine; Emergency Provider General Practice; Visit Provider Nurse Practitioner
PROC: 0LB Tendons, Excision (ICD-10-PCS; principal; 2022-09-02 08:30)
PROC: 0JBQ0ZZ Excision of Right Foot Subcutaneous Tissue and Fascia, Open Approach (ICD-10-PCS; principal; 2022-09-05 12:00)
DX: L02.611 Cutaneous abscess of right foot (principal); L97.518 Non-pressure chronic ulcer of other part of right foot with other specified severity; Z68.44 Body mass index [BMI] 60.0-69.9, adult; E11.621 Type 2 diabetes mellitus with foot ulcer; J10.1 Influenza due to other identified influenza virus with other respiratory manifestations; E78.5 Hyperlipidemia, unspecified; E11.42 Type 2 diabetes mellitus with diabetic polyneuropathy; E11.65 Type 2 diabetes mellitus with hyperglycemia; E66.9 Obesity, unspecified; I10 Essential (primary) hypertension; J45.909 Unspecified asthma, uncomplicated; R19.7 Diarrhea, unspecified; Z20.822 Contact with and (suspected) exposure to COVID-19; Z79.84 Long term (current) use of oral hypoglycemic drugs
CPT/HCPCS: 36415; 71046; 80048; 80053; 80202; 82948; 83036; 83605; 83735; 84443; 85025; 85027; 85652; 86140; 87040; 87070; 87077; 87186; 87205; 87636; 93005; 94667; 96361; 96365; 96366; 96367; 96368; 96372; 97165; 97535; 99285; A9270; C9363; G0378; J0692; J1650; J1815; J2250; J2405; J2704; J3010; J3370; J7030; J7120; Q4118

== ENCOUNTER 2022-12-10 07:21 | Outpatient (RCR) | payer OTHER, SELFPAY ==
--- NOTE | 2022-09-11 13:36 | PM.PNORT ---
Progress Note: A&P Assessment and Plan (1) Diabetic foot infection: Code(s): E11.628 - Type 2 diabetes mellitus with other skin complications; L08.9 - Local infection of the skin and subcutaneous tissue, unspecified Status: Acute (2) Infection of great toe: Code(s): L08.9 - Local infection of the skin and subcutaneous tissue, unspecified Status: Acute (3) Type 2 diabetes with complication: Code(s): E11.8 - Type 2 diabetes mellitus with unspecified complications Status: Acute Plan One week status post debridement with graft application right hallux. Infection overall improving. Patient complete antibiotic course over the next 5 days. New total contact cast applied. Protected weight-bearing and activity. Follow up in 1 week for cast change. Subjective Subjective Date/Time Seen: 09/11/22 13:36 Post Op day: 6 days Principal diagnosis: right great toe abscess with diabetic infection Interval history: 57-year-old presents to the [facility] outpatient wound clinic for follow-up right hallux deep abscess and diabetic infection. Six days status post application of graft. Nine days status post original debridement. Total contact cast in place. No other complaints. Exam Const: General: healthy appearing; No in distress or confusion Orientation/consciousness: oriented to person, oriented to place, oriented to time and No confusion HENMT: Head: normal to inspection, normocephalic and atraumatic Eyes: Conjunctivae: conjunctivae normal Sclera: sclerae normal Neck: Neck: supple and nontender Resp: Effort & Inspection: normal respiratory effort and no audible wheezes Cardio: Rate: regular rate Rhythm: regular rhythm Skin: General skin exam: no rashes or lesions noted Neuro: General: oriented to person, oriented to place, oriented to time and No confusion Extrem: Right upper extremity: normal to inspection Left upper extremity: normal to inspection Right lower extremity: ankle Details: normal to inspection, abnormal ROM Details: with range as follows (Ankle dorsiflexion -10 degrees, Plantar flexion 40 degrees, inversion 15 degrees, [id number] degress) and other (Good stability all directions); no tenderness, no swelling and no ecchymosis and foot Details: abnormal to inspection, abnormal ROM of toe (Hallux MTP dorsieflexion 40, planterflexion 20), vascular exam Details: dorsalis pedis pulse present and normal capillary refill, tendon exam Details: active flexion abnormal and active extension abnormal, motor-sensory exam Details: two point discrimination abnormal Location: in all toes and light-touch abnormal Location: in all toes and other (Hallux Metatarsophalangeal motion 20 degrees dorisiflexion 10 degrees, plantar flexion ) Left lower extremity: ankle Details: normal to inspection and abnormal ROM Details: with range as follows (Ankle dorsiflexion -10, planter flexion 40, inversion 15, eversion 15); no tenderness and no swelling and foot Details: normal capillary refill, abnormal ROM of toe, vascular exam (2+ DP pulse, good cap refill all toes), tendon exam active flexion normal of the great toe and active extension normal of the great toe and motor-sensory exam two point discrimination abnormal in all toes and light-touch abnormal in all toes; no tenderness and no crepitus Other: Cast removed right lower extremity. Graft in place right hallux and appears to be incorporating well. No drainage. Erythema and swelling improved. Psych: Affect: normal affect [facility] Follow-up Billing Inpatient Follow-up [id number] Post-op Follow Up Additional Procedures Additional Procedures: [id number] Total Contact Cast (58 modifier) Fracture/Casting/Strapping Pre Procedure Consent was obtained, Procedures/risks were explained, Questions were answered, Correct patient identified and Correct side and site confirmed Episode of Care Return Visit (right foot) Casting Cast: Total Contact Leg Cast Application E
[2022-09-11 14:24] VITALS: BMI 31.6
--- NOTE | 2022-09-18 08:21 | PM.PNORT ---
Progress Note: A&P Assessment and Plan (1) Type 2 diabetes with complication: Code(s): E11.8 - Type 2 diabetes mellitus with unspecified complications Status: Acute (2) Diabetic foot infection: Code(s): E11.628 - Type 2 diabetes mellitus with other skin complications; L08.9 - Local infection of the skin and subcutaneous tissue, unspecified Status: Acute (3) Infection of great toe: Code(s): L08.9 - Local infection of the skin and subcutaneous tissue, unspecified Status: Acute Assessment and Plan: 2 weeks s/p debridement with graft. Total contact cast change. BS control. Finished antibiotic course- no signs infection. Continue cast x 1 week- f/u for cast removal, graft silicone removal Discussed course with patient. Subjective Subjective Date/Time Seen: 09/18/22 08:21 Post Op day: 13 Principal diagnosis: Right hallux abscess Interval history: Patient returns for evaluation [facility] for right hallux abscess. Total contact cast in place. No interim complaints. Patient has completed his antibiotic course. Denies fever / chills. Exam Const: General: healthy appearing; No in distress or confusion Orientation/consciousness: oriented to person, oriented to place, oriented to time and No confusion HENMT: Head: normal to inspection, normocephalic and atraumatic Eyes: Conjunctivae: conjunctivae normal Sclera: sclerae normal Neck: Neck: supple and nontender Resp: Effort & Inspection: normal respiratory effort and no audible wheezes Cardio: Rate: regular rate Rhythm: regular rhythm Neuro: General: oriented to person, oriented to place, oriented to time and No confusion Extrem: Right upper extremity: normal to inspection Left upper extremity: normal to inspection Right lower extremity: ankle Details: normal to inspection, abnormal ROM Details: with range as follows (Ankle dorsiflexion -10 degrees, Plantar flexion 40 degrees, inversion 15 degrees, [id number] degress) and other (Good stability all directions); no tenderness, no swelling and no ecchymosis and foot Details: abnormal to inspection, abnormal ROM of toe (Hallux MTP dorsieflexion 40, planterflexion 20), vascular exam Details: dorsalis pedis pulse present and normal capillary refill, tendon exam Details: active flexion abnormal and active extension abnormal, motor-sensory exam Details: two point discrimination abnormal Location: in all toes and light-touch abnormal Location: in all toes and other (Hallux Metatarsophalangeal motion 20 degrees dorisiflexion 10 degrees, plantar flexion ) Left lower extremity: ankle Details: normal to inspection and abnormal ROM Details: with range as follows (Ankle dorsiflexion -10, planter flexion 40, inversion 15, eversion 15); no tenderness and no swelling and foot Details: normal capillary refill, abnormal ROM of toe, vascular exam (2+ DP pulse, good cap refill all toes), tendon exam active flexion normal of the great toe and active extension normal of the great toe and motor-sensory exam two point discrimination abnormal in all toes and light-touch abnormal in all toes; no tenderness and no crepitus Other: Cast removed right lower extremity. Graft in place right hallux and appears to be incorporating well. No drainage. Erythema and swelling improved. Loose skin debrided with scissor Psych: Affect: normal affect [facility] Follow-up Billing Inpatient Follow-up [id number] Post-op Follow Up (modifier -[id number]) Additional Procedures Additional Procedures: [id number] Total Contact Cast (right leg) Fracture/Casting/Strapping Pre Procedure Consent was obtained, Procedures/risks were explained, Questions were answered, Correct patient identified and Correct side and site confirmed Episode of Care Return Visit (right foot) Casting Cast: Total Contact Leg Cast Application Exam of Affected Area: Color: Normal, Temp: Normal, Pulse: Normal, Blanching: Normal, Capillary Refill: Normal and Sensory
--- NOTE | 2022-09-24 09:19 | PM.IMHP ---
H&P: HPI History of Present Illness Date/Time: 09/24/22 09:19 Chief Complaint: Right Foot Ulcer Narrative: 57 year old male presents to the [facility] wound clinic for reevaluation of right hallux ulcer. No new concerns. Tolerating TCC well. Review of Systems Review of Systems: All systems reviewed & are unremarkable except as noted in HPI and below PMFSH Past Medical History Medical History Asthma Diabetic neuropathy DM2 (diabetes mellitus, type 2) HTN (hypertension) with goal to be determined Hyperlipidemia Obesity Type 2 diabetes with complication Surgical History Surgical History H/O eye surgery H/O shoulder surgery Sarcoma removed History of back surgery S/P lateral meniscus repair of left knee And right Family History Family History Father Hypertension Mother Chronic back pain Social History Social History Social History: The patient is and lives with his . The patient has 2 daughters. His is the durable power staff attorney for healthcare. The patient is lifelong nonsmoker. He has a couple drinks a week. 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 Code status full code Smoking status: Never smoker Alcohol intake: former Drinks per week: 3 Substance use: former Substance use type: does not use Lack of Transportation: No Lack of Food: Never True Current Housing: I Have Housing Concerned About Future Housing: No Difficulty Paying Gas/Electric Bills: No Difficulty Paying for Meds: No Currently Unemployed: No Education: Bachelor's Degree Difficulty w/ Childcare or Family Care: No Spiritual care concerns: No Meds Home Medications and Allergies Home Medications Medication Instructions Recorded Confirmed Type albuterol sulfate 90 mcg/actuation 90 mcg inhalation DIRECTED 08/19/22 09/11/22 History aerosol inhaler atenolol 50 mg tablet 50 mg HS 08/19/22 09/11/22 History gabapentin 300 mg capsule 300 mg BID 08/19/22 09/11/22 History lisinopril 20 1 tablet DAILY 08/19/22 09/11/22 History mg-hydrochlorothiazide 12.5 mg tablet metformin 1,000 mg tablet 1,000 mg BID 08/19/22 09/11/22 History simvastatin 40 mg tablet 40 mg HS 08/19/22 09/11/22 History tamsulosin 0.4 mg capsule 0.4 mg PO HS 08/19/22 09/11/22 History Saccharomyces boulardii 250 mg 250 mg PO BID #60 caps 09/06/22 09/11/22 Rx capsule (Florastor) benzonatate 100 mg capsule 100 mg PO TID #60 caps 09/06/22 09/11/22 Rx levofloxacin 750 mg tablet 750 mg PO DAILY #10 tabs 09/06/22 09/11/22 Rx metronidazole 250 mg tablet 500 mg PO Q8HR 10 days #60 tabs 09/06/22 09/11/22 Rx Allergies Allergy/AdvReac Type Severity Reaction Status Date / Time No Known Allergies Allergy Verified 09/11/22 14:34 Exam Const: General: healthy appearing; No in distress or confusion Orientation/consciousness: oriented to person, oriented to place, oriented to time and No confusion HENMT: Head: normal to inspection, normocephalic and atraumatic Eyes: Conjunctivae: conjunctivae normal Sclera: sclerae normal Neck: Neck: supple and nontender Resp: Effort & Inspection: normal respiratory effort and no audible wheezes Cardio: Rate: regular rate Rhythm: regular rhythm Neuro: General: oriented to person, oriented to place, oriented to time and No confusion Extrem: Right upper extremity: normal to inspection Left upper extremity: normal to inspection Right lower extremity: ankle Details: normal to inspection, abnormal ROM Details: with range as follows (Ankle dorsiflexion -10 degrees, Plantar flexion 40 degrees, inversion 15 degrees, [id number] degress) and other (Good stability all directions); no tenderness, no swelling and no ecchymosis and foot Details: abnormal to inspection,
--- NOTE | 2022-10-01 08:44 | PM.IMHP ---
H&P: HPI History of Present Illness Date/Time: 10/01/22 08:44 Chief Complaint: Right Foot Ulcer Narrative: 57 year old male presents to the [facility] wound clinic for reevaluation of right hallux ulcer. No new concerns. Tolerating TCC well. Review of Systems Review of Systems: All systems reviewed & are unremarkable except as noted in HPI and below PMFSH Past Medical History Medical History Asthma Diabetic neuropathy DM2 (diabetes mellitus, type 2) HTN (hypertension) with goal to be determined Hyperlipidemia Obesity Type 2 diabetes with complication Surgical History Surgical History H/O eye surgery H/O shoulder surgery Sarcoma removed History of back surgery S/P lateral meniscus repair of left knee And right Family History Family History Father Hypertension Mother Chronic back pain Social History Social History Social History: The patient is and lives with his . The patient has 2 daughters. His is the durable power ip attorney for healthcare. The patient is lifelong nonsmoker. He has a couple drinks a week. 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 Code status full code Smoking status: Never smoker Alcohol intake: former Drinks per week: 3 Substance use: former Substance use type: does not use Lack of Transportation: No Lack of Food: Never True Current Housing: I Have Housing Concerned About Future Housing: No Difficulty Paying Gas/Electric Bills: No Difficulty Paying for Meds: No Currently Unemployed: No Education: Bachelor's Degree Difficulty w/ Childcare or Family Care: No Spiritual care concerns: No Meds Home Medications and Allergies Home Medications Medication Instructions Recorded Confirmed Type albuterol sulfate 90 mcg/actuation 90 mcg inhalation DIRECTED 08/19/22 09/11/22 History aerosol inhaler atenolol 50 mg tablet 50 mg HS 08/19/22 09/11/22 History gabapentin 300 mg capsule 300 mg BID 08/19/22 09/11/22 History lisinopril 20 1 tablet DAILY 08/19/22 09/11/22 History mg-hydrochlorothiazide 12.5 mg tablet metformin 1,000 mg tablet 1,000 mg BID 08/19/22 09/11/22 History simvastatin 40 mg tablet 40 mg HS 08/19/22 09/11/22 History tamsulosin 0.4 mg capsule 0.4 mg PO HS 08/19/22 09/11/22 History Saccharomyces boulardii 250 mg 250 mg PO BID #60 caps 09/06/22 09/11/22 Rx capsule (Florastor) benzonatate 100 mg capsule 100 mg PO TID #60 caps 09/06/22 09/11/22 Rx levofloxacin 750 mg tablet 750 mg PO DAILY #10 tabs 09/06/22 09/11/22 Rx metronidazole 250 mg tablet 500 mg PO Q8HR 10 days #60 tabs 09/06/22 09/11/22 Rx Allergies Allergy/AdvReac Type Severity Reaction Status Date / Time No Known Allergies Allergy Verified 09/11/22 14:34 Exam Const: General: healthy appearing; No in distress or confusion Orientation/consciousness: oriented to person, oriented to place, oriented to time and No confusion HENMT: Head: normal to inspection, normocephalic and atraumatic Eyes: Conjunctivae: conjunctivae normal Sclera: sclerae normal Neck: Neck: supple and nontender Resp: Effort & Inspection: normal respiratory effort and no audible wheezes Cardio: Rate: regular rate Rhythm: regular rhythm Neuro: General: oriented to person, oriented to place, oriented to time and No confusion Extrem: Right upper extremity: normal to inspection Left upper extremity: normal to inspection Right lower extremity: ankle Details: normal to inspection, abnormal ROM Details: with range as follows (Ankle dorsiflexion -10 degrees, Plantar flexion 40 degrees, inversion 15 degrees, [id number] degress) and other (Good stability all directions); no tenderness, no swelling and no ecchymosis and foot Details: abnormal to inspection,
--- NOTE | 2022-10-15 08:41 | PM.IMHP ---
H&P: HPI History of Present Illness Date/Time: 10/15/22 08:41 Chief Complaint: Right Foot Ulcer Narrative: 57 year old male presents to the [facility] wound clinic for reevaluation of right hallux ulcer. No new concerns. Review of Systems Review of Systems: All systems reviewed & are unremarkable except as noted in HPI and below PMFSH Past Medical History Medical History Asthma Diabetic neuropathy DM2 (diabetes mellitus, type 2) HTN (hypertension) with goal to be determined Hyperlipidemia Obesity Type 2 diabetes with complication Surgical History Surgical History H/O eye surgery H/O shoulder surgery Sarcoma removed History of back surgery S/P lateral meniscus repair of left knee And right Family History Family History Father Hypertension Mother Chronic back pain Social History Social History Social History: The patient is and lives with his . The patient has 2 daughters. His is the durable power kiln car repairer for healthcare. The patient is lifelong nonsmoker. He has a couple drinks a week. 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 Code status full code Smoking status: Never smoker Alcohol intake: former Drinks per week: 3 Substance use: former Substance use type: does not use Lack of Transportation: No Lack of Food: Never True Current Housing: I Have Housing Concerned About Future Housing: No Difficulty Paying Gas/Electric Bills: No Difficulty Paying for Meds: No Currently Unemployed: No Education: Bachelor's Degree Difficulty w/ Childcare or Family Care: No Spiritual care concerns: No Meds Home Medications and Allergies Home Medications Medication Instructions Recorded Confirmed Type albuterol sulfate 90 mcg/actuation 90 mcg inhalation DIRECTED 08/19/22 10/08/22 History aerosol inhaler atenolol 50 mg tablet 50 mg HS 08/19/22 10/08/22 History gabapentin 300 mg capsule 300 mg BID 08/19/22 10/08/22 History lisinopril 20 1 tablet DAILY 08/19/22 10/08/22 History mg-hydrochlorothiazide 12.5 mg tablet metformin 1,000 mg tablet 1,000 mg BID 08/19/22 10/08/22 History simvastatin 40 mg tablet 40 mg HS 08/19/22 10/08/22 History tamsulosin 0.4 mg capsule 0.4 mg PO HS 08/19/22 10/08/22 History cetirizine 10 mg capsule (Zyrtec) 10 mg PO DAILY PRN 10/08/22 10/08/22 History multivitamin (Daily Multi-Vitamin 1 tablet PO DAILY 10/08/22 10/08/22 History tablet) trazodone 50 mg tablet 50 mg PO QHS PRN 10/08/22 10/08/22 History Allergies Allergy/AdvReac Type Severity Reaction Status Date / Time glipizide Allergy Intermediate Rash Verified 10/08/22 08:26 Exam Const: General: healthy appearing; No in distress or confusion Orientation/consciousness: oriented to person, oriented to place, oriented to time and No confusion HENMT: Head: normal to inspection, normocephalic and atraumatic Eyes: Conjunctivae: conjunctivae normal Sclera: sclerae normal Neck: Neck: supple and nontender Resp: Effort & Inspection: normal respiratory effort and no audible wheezes Cardio: Rate: regular rate Rhythm: regular rhythm Neuro: General: oriented to person, oriented to place, oriented to time and No confusion Extrem: Right upper extremity: normal to inspection Left upper extremity: normal to inspection Right lower extremity: ankle Details: normal to inspection, abnormal ROM Details: with range as follows (Ankle dorsiflexion -10 degrees, Plantar flexion 40 degrees, inversion 15 degrees, [id number] degress) and other (Good stability all directions); no tenderness, no swelling and no ecchymosis and foot Details: abnormal to inspection, abnormal ROM of toe (Hallux MTP dorsieflexion 40, planterflexion 20), vascular exam Details: dorsalis
--- NOTE | 2022-10-29 09:07 | PM.IMHP ---
H&P: HPI History of Present Illness Date/Time: 10/29/22 09:07 Chief Complaint: Right Foot Ulcer Narrative: 57 year old male presents to the [facility] wound clinic for reevaluation of right hallux ulcer. No new concerns. Review of Systems Review of Systems: All systems reviewed & are unremarkable except as noted in HPI and below PMFSH Past Medical History Medical History Asthma Diabetic neuropathy DM2 (diabetes mellitus, type 2) HTN (hypertension) with goal to be determined Hyperlipidemia Obesity Type 2 diabetes with complication Surgical History Surgical History H/O eye surgery H/O shoulder surgery Sarcoma removed History of back surgery S/P lateral meniscus repair of left knee And right Family History Family History Father Hypertension Mother Chronic back pain Social History Social History Social History: The patient is and lives with his . The patient has 2 daughters. His is the durable power civil litigation attorney for healthcare. The patient is lifelong nonsmoker. He has a couple drinks a week. 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 Code status full code Smoking status: Never smoker Alcohol intake: former Drinks per week: 3 Substance use: former Substance use type: does not use Lack of Transportation: No Lack of Food: Never True Current Housing: I Have Housing Concerned About Future Housing: No Difficulty Paying Gas/Electric Bills: No Difficulty Paying for Meds: No Currently Unemployed: No Education: Bachelor's Degree Difficulty w/ Childcare or Family Care: No Spiritual care concerns: No Meds Home Medications and Allergies Home Medications Medication Instructions Recorded Confirmed Type albuterol sulfate 90 mcg/actuation 90 mcg inhalation DIRECTED 08/19/22 10/08/22 History aerosol inhaler atenolol 50 mg tablet 50 mg HS 08/19/22 10/08/22 History gabapentin 300 mg capsule 300 mg BID 08/19/22 10/08/22 History metformin 1,000 mg tablet 1,000 mg BID 08/19/22 10/08/22 History simvastatin 40 mg tablet 40 mg HS 08/19/22 10/08/22 History tamsulosin 0.4 mg capsule 0.4 mg PO HS 08/19/22 10/08/22 History cetirizine 10 mg capsule (Zyrtec) 10 mg PO DAILY PRN 10/08/22 10/08/22 History multivitamin (Daily Multi-Vitamin 1 tablet PO DAILY 10/08/22 10/08/22 History tablet) trazodone 50 mg tablet 50 mg PO QHS PRN 10/08/22 10/08/22 History lisinopril 20 2 tablet PO DAILY #180 tabs 10/22/22 Rx mg-hydrochlorothiazide 12.5 mg tablet Allergies Allergy/AdvReac Type Severity Reaction Status Date / Time glipizide Allergy Intermediate Rash Verified 10/08/22 08:26 Exam Const: General: healthy appearing; No in distress or confusion Orientation/consciousness: oriented to person, oriented to place, oriented to time and No confusion HENMT: Head: normal to inspection, normocephalic and atraumatic Eyes: Conjunctivae: conjunctivae normal Sclera: sclerae normal Neck: Neck: supple and nontender Resp: Effort & Inspection: normal respiratory effort and no audible wheezes Cardio: Rate: regular rate Rhythm: regular rhythm Neuro: General: oriented to person, oriented to place, oriented to time and No confusion Extrem: Right upper extremity: normal to inspection Left upper extremity: normal to inspection Right lower extremity: ankle Details: normal to inspection, abnormal ROM Details: with range as follows (Ankle dorsiflexion -10 degrees, Plantar flexion 40 degrees, inversion 15 degrees, [id number] degress) and other (Good stability all directions); no tenderness, no swelling and no ecchymosis and foot Details: abnormal to inspection, abnormal ROM of toe (Hallux MTP dorsieflexion 40, planterflexion 20), vascular exam Details: dorsalis
--- NOTE | 2022-11-12 08:38 | PM.IMHP ---
H&P: HPI History of Present Illness Date/Time: 11/12/22 08:38 Chief Complaint: Right Foot Ulcer Narrative: 57 year old male presents to the [facility] wound clinic for reevaluation of right hallux ulcer. 11 weeks, 1 day s/p debridement and graft application. No new concerns. Review of Systems Review of Systems: All systems reviewed & are unremarkable except as noted in HPI and below PMFSH Past Medical History Medical History Asthma Diabetic neuropathy DM2 (diabetes mellitus, type 2) HTN (hypertension) with goal to be determined Hyperlipidemia Obesity Type 2 diabetes with complication Surgical History Surgical History H/O eye surgery H/O shoulder surgery Sarcoma removed History of back surgery S/P lateral meniscus repair of left knee And right Family History Family History Father Hypertension Mother Chronic back pain Social History Social History Social History: The patient is and lives with his . The patient has 2 daughters. His is the durable power trust and estates attorney for healthcare. The patient is lifelong nonsmoker. He has a couple drinks a week. 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 Code status full code Smoking status: Never smoker Alcohol intake: former Drinks per week: 3 Substance use: former Substance use type: does not use Lack of Transportation: No Lack of Food: Never True Current Housing: I Have Housing Concerned About Future Housing: No Difficulty Paying Gas/Electric Bills: No Difficulty Paying for Meds: No Currently Unemployed: No Education: Bachelor's Degree Difficulty w/ Childcare or Family Care: No Spiritual care concerns: No Meds Home Medications and Allergies Home Medications Medication Instructions Recorded Confirmed Type albuterol sulfate 90 mcg/actuation 90 mcg inhalation DIRECTED 08/19/22 10/08/22 History aerosol inhaler atenolol 50 mg tablet 50 mg HS 08/19/22 10/08/22 History gabapentin 300 mg capsule 300 mg BID 08/19/22 10/08/22 History metformin 1,000 mg tablet 1,000 mg BID 08/19/22 10/08/22 History simvastatin 40 mg tablet 40 mg HS 08/19/22 10/08/22 History tamsulosin 0.4 mg capsule 0.4 mg PO HS 08/19/22 10/08/22 History cetirizine 10 mg capsule (Zyrtec) 10 mg PO DAILY PRN 10/08/22 10/08/22 History multivitamin (Daily Multi-Vitamin 1 tablet PO DAILY 10/08/22 10/08/22 History tablet) trazodone 50 mg tablet 50 mg PO QHS PRN 10/08/22 10/08/22 History lisinopril 20 2 tablet PO DAILY #180 tabs 10/22/22 Rx mg-hydrochlorothiazide 12.5 mg tablet Allergies Allergy/AdvReac Type Severity Reaction Status Date / Time glipizide Allergy Intermediate Rash Verified 10/08/22 08:26 Exam Const: General: healthy appearing; No in distress or confusion Orientation/consciousness: oriented to person, oriented to place, oriented to time and No confusion HENMT: Head: normal to inspection, normocephalic and atraumatic Eyes: Conjunctivae: conjunctivae normal Sclera: sclerae normal Neck: Neck: supple and nontender Resp: Effort & Inspection: normal respiratory effort and no audible wheezes Cardio: Rate: regular rate Rhythm: regular rhythm Neuro: General: oriented to person, oriented to place, oriented to time and No confusion Extrem: Right upper extremity: normal to inspection Left upper extremity: normal to inspection Right lower extremity: ankle Details: normal to inspection, abnormal ROM Details: with range as follows (Ankle dorsiflexion -10 degrees, Plantar flexion 40 degrees, inversion 15 degrees, degress) and other (Good stability all directions); no tenderness, no swelling and no ecchymosis and foot Details: abnormal to inspection, abnormal ROM of toe (Hallux MTP dorsieflexion 40
--- NOTE | 2022-12-10 08:39 | PM.IMHP ---
H&P: HPI History of Present Illness Date/Time: 12/10/22 08:39 Chief Complaint: Right hallux abscess Narrative: patient returns to [facility] for re-evaluation of the right foot. Right hallux abscess status post debridement and graft application. No interim complaints. He has been evaluated and measured custom shoes and inserts. Review of Systems Constitutional: Constitutional: Denies fever(s) Eyes: Eyes: Denies blurry vision ENT: Reports Normal hearing present Cardiovascular: Cardiovascular: Denies chest pain and Denies dyspnea Respiratory: Respiratory: Denies dyspnea and Denies wheezing Gastrointestinal: Gastrointestinal: Denies abdominal pain Genitourinary: Genitourinary: Denies urinary urgency Musculoskeletal: Musculoskeletal: Reports as per HPI and Denies numbness Integumentary/Breasts: Skin/Breast: Denies changing lesions and Denies sores Neurologic: Reports Normal hearing present, Denies behavioral changes, Denies confusion, Reports numbness ( Mild toes), Denies convulsions and Reports tingling Psychiatric: Psychiatric: Denies behavioral changes, Denies confusion and Denies hallucinations Endocrine: Endocrine: Denies heat intolerance Hematologic/Lymphatic: Hematologic/Lymphatic: Denies easy bleeding Allergic/Immunologic: Allergic/Immunologic: Denies wheezing PMFSH Past Medical History Medical History Asthma Diabetic neuropathy DM2 (diabetes mellitus, type 2) HTN (hypertension) with goal to be determined Hyperlipidemia Obesity Type 2 diabetes with complication Surgical History Surgical History H/O eye surgery H/O shoulder surgery Sarcoma removed History of back surgery S/P lateral meniscus repair of left knee And right Family History Family History Father Hypertension Mother Chronic back pain Social History Social History Social History: The patient is and lives with his . The patient has 2 daughters. His is the durable power trial attorney for healthcare. The patient is lifelong nonsmoker. He has a couple drinks a week. 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 Code status full code Smoking status: Never smoker Alcohol intake: former Drinks per week: 3 Substance use: former Substance use type: does not use Lack of Transportation: No Lack of Food: Never True Current Housing: I Have Housing Concerned About Future Housing: No Difficulty Paying Gas/Electric Bills: No Difficulty Paying for Meds: No Currently Unemployed: No Education: Bachelor's Degree Difficulty w/ Childcare or Family Care: No Spiritual care concerns: No Meds Home Medications and Allergies Home Medications Medication Instructions Recorded Confirmed Type albuterol sulfate 90 mcg/actuation 90 mcg inhalation DIRECTED 08/19/22 10/08/22 History aerosol inhaler atenolol 50 mg tablet 50 mg HS 08/19/22 10/08/22 History gabapentin 300 mg capsule 300 mg BID 08/19/22 10/08/22 History metformin 1,000 mg tablet 1,000 mg BID 08/19/22 10/08/22 History simvastatin 40 mg tablet 40 mg HS 08/19/22 10/08/22 History tamsulosin 0.4 mg capsule 0.4 mg PO HS 08/19/22 10/08/22 History cetirizine 10 mg capsule (Zyrtec) 10 mg PO DAILY PRN 10/08/22 10/08/22 History multivitamin (Daily Multi-Vitamin 1 tablet PO DAILY 10/08/22 10/08/22 History tablet) trazodone 50 mg tablet 50 mg PO QHS PRN 10/08/22 10/08/22 History lisinopril 20 2 tablet PO DAILY #180 tabs 10/22/22 Rx mg-hydrochlorothiazide 12.5 mg tablet Allergies Allergy/AdvReac Type Severity Reaction Status Date / Time glipizide Allergy Intermediate Rash Verified 10/08/22 08:26 Exam Const: General: No confusion Orientation/consciousness: No
== END 2022-12-10 12:08 | disposition home or self-care (01) ==
LOC: ANHWOC 07:21
PROVIDERS: PCP Family Medicine; Visit Provider Orthopaedic Surgery
DX: E11.621 Type 2 diabetes mellitus with foot ulcer (principal); L97.519 Non-pressure chronic ulcer of other part of right foot with unspecified severity
CPT/HCPCS: 29445; 99212; 99213; A9270; G0463; L2116

== ENCOUNTER 2023-05-06 07:08 | Outpatient (RCR) | payer OTHER, SELFPAY ==
[2023-02-21 08:30] VITALS: BMI 30.3
--- NOTE | 2023-02-21 09:15 | PM.IMHP ---
H&P: [facility] History of Present Illness Date/Time: 02/21/23 09:15 Chief Complaint: New onset right medial hallux blister Narrative: 57 year old male presents today with complaints of a new onset blister on the medial aspect of the right hallux near the site of his original ulcer which he was treated for at the beginning of this year. He was wearing sandals over the weekend when he noticed the blister occur. He had not been wearing his DM shoes as he has over the last few months. History, exam and radiographs from the outpatient orthopedic clinic reviewed with the patient. Radiographs reveal a small exostosis on the medial aspect of the distal phalanx. No evidence of osteomyelitis or infection. Review of Systems Review of Systems: All systems reviewed & are unremarkable except as noted in HPI and below PMFSH Past Medical History Medical History (Updated 02/21/23 @ 12:25 by AMAIRANI España) Asthma Diabetic foot ulcer Diabetic neuropathy DM2 (diabetes mellitus, type 2) HTN (hypertension) with goal to be determined Hyperlipidemia Obesity Type 2 diabetes with complication Surgical History Surgical History H/O eye surgery H/O shoulder surgery Sarcoma removed History of back surgery S/P lateral meniscus repair of left knee And right Family History Family History Father Hypertension Mother Chronic back pain Social History Social History Social History: The patient is and lives with his . The patient has 2 daughters. His is the durable power health care attorney for healthcare. The patient is lifelong nonsmoker. He has a couple drinks a week. 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 Code status full code Smoking status: Never smoker Alcohol intake: former Drinks per week: 3 Substance use: former Substance use type: does not use Lack of Transportation: No Lack of Food: Never True Current Housing: I Have Housing Concerned About Future Housing: No Difficulty Paying Gas/Electric Bills: No Difficulty Paying for Meds: No Currently Unemployed: No Education: Bachelor's Degree Difficulty w/ Childcare or Family Care: No Spiritual care concerns: No Meds Home Medications and Allergies Home Medications Medication Instructions Recorded Confirmed Type albuterol sulfate 90 mcg/actuation 90 mcg inhalation DIRECTED 08/19/22 12/27/22 History aerosol inhaler atenolol 50 mg tablet 50 mg HS 08/19/22 12/27/22 History simvastatin 40 mg tablet 40 mg HS 08/19/22 12/27/22 History cetirizine 10 mg capsule (Zyrtec) 10 mg PO DAILY PRN 10/08/22 12/27/22 History multivitamin (Daily Multi-Vitamin 1 tablet PO DAILY 10/08/22 12/27/22 History tablet) gabapentin 300 mg capsule 300 mg PO BID #180 caps 12/10/22 12/27/22 Rx lisinopril 20 2 tablet PO DAILY #180 tabs 12/10/22 12/27/22 Rx mg-hydrochlorothiazide 12.5 mg tablet metformin 1,000 mg tablet 1,000 mg PO BID #180 tabs 12/27/22 12/27/22 Rx trazodone 50 mg tablet 50 mg PO QHS PRN sleep #90 tabs 12/27/22 12/27/22 Rx tamsulosin 0.4 mg capsule 0.4 mg PO HS #90 caps 01/21/23 Rx Allergies Allergy/AdvReac Type Severity Reaction Status Date / Time glipizide Allergy Intermediate Rash Verified 12/27/22 12:15 Exam Const: General: No confusion Orientation/consciousness: No confusion HENMT: Head: normal to inspection, normocephalic and atraumatic Eyes: Conjunctivae: conjunctivae normal Sclera: sclerae normal Neck: Neck: supple and nontender Chest: Chest palpation & inspection: normal inspection of the chest Resp: Effort & Inspection: normal respiratory effort and no audible wheezes Cardio: Rate: regular rate Rhythm: regular rhythm : General: Yes deferred Skin: General skin exam: no rashes or lesions noted Neuro: General: No confusion E
--- NOTE | 2023-02-28 08:49 | PM.IMHP ---
H&P: HPI History of Present Illness Date/Time: 02/28/23 08:49 Chief Complaint: New onset right medial hallux blister Narrative: 57 year old male presents today for reevaluation of new onset blister on the medial aspect of the right hallux near the site of his original ulcer which he was treated for at the beginning of this year. Radiographs last week reveal a small exostosis on the medial aspect of the distal phalanx. Patient started on daily dressing changes with post op shoe. No new concerns. Denies signs of infection. Review of Systems Review of Systems: All systems reviewed & are unremarkable except as noted in HPI and below PMFSH Past Medical History Medical History Asthma Diabetic foot ulcer Diabetic neuropathy DM2 (diabetes mellitus, type 2) HTN (hypertension) with goal to be determined Hyperlipidemia Obesity Type 2 diabetes with complication Surgical History Surgical History H/O eye surgery H/O shoulder surgery Sarcoma removed History of back surgery S/P lateral meniscus repair of left knee And right Family History Family History Father Hypertension Mother Chronic back pain Social History Social History Social History: The patient is and lives with his . The patient has 2 daughters. His is the durable power telecommunications line mechanic for healthcare. The patient is lifelong nonsmoker. He has a couple drinks a week. 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 Code status full code Smoking status: Never smoker Alcohol intake: former Drinks per week: 3 Substance use: former Substance use type: does not use Lack of Transportation: No Lack of Food: Never True Current Housing: I Have Housing Concerned About Future Housing: No Difficulty Paying Gas/Electric Bills: No Difficulty Paying for Meds: No Currently Unemployed: No Education: Bachelor's Degree Difficulty w/ Childcare or Family Care: No Spiritual care concerns: No Meds Home Medications and Allergies Home Medications Medication Instructions Recorded Confirmed Type albuterol sulfate 90 mcg/actuation 90 mcg inhalation DIRECTED 08/19/22 12/27/22 History aerosol inhaler atenolol 50 mg tablet 50 mg HS 08/19/22 12/27/22 History simvastatin 40 mg tablet 40 mg HS 08/19/22 12/27/22 History cetirizine 10 mg capsule (Zyrtec) 10 mg PO DAILY PRN Allergy Symptoms 10/08/22 12/27/22 History multivitamin (Daily Multi-Vitamin 1 tablet PO DAILY 10/08/22 12/27/22 History tablet) gabapentin 300 mg capsule 300 mg PO BID #180 caps 12/10/22 12/27/22 Rx lisinopril 20 2 tablet PO DAILY #180 tabs 12/10/22 12/27/22 Rx mg-hydrochlorothiazide 12.5 mg tablet metformin 1,000 mg tablet 1,000 mg PO BID #180 tabs 12/27/22 12/27/22 Rx trazodone 50 mg tablet 50 mg PO QHS PRN sleep #90 tabs 12/27/22 12/27/22 Rx tamsulosin 0.4 mg capsule 0.4 mg PO HS #90 caps 01/21/23 Rx Allergies Allergy/AdvReac Type Severity Reaction Status Date / Time glipizide Allergy Intermediate Rash Verified 12/27/22 12:15 Exam Const: General: No confusion Orientation/consciousness: No confusion HENMT: Head: normal to inspection, normocephalic and atraumatic Eyes: Conjunctivae: conjunctivae normal Sclera: sclerae normal Neck: Neck: supple and nontender Chest: Chest palpation & inspection: normal inspection of the chest Resp: Effort & Inspection: normal respiratory effort and no audible wheezes Cardio: Rate: regular rate Rhythm: regular rhythm : General: Yes deferred Skin: General skin exam: no rashes or lesions noted Neuro: General: No confusion Extrem: General: capillary refill normal Right upper extremity: normal to inspection Left upper extremity: normal to inspection Right lower extremity: n
--- NOTE | 2023-03-14 08:42 | PM.IMHP ---
H&P: HPI History of Present Illness Date/Time: 03/14/23 08:42 <AMAIRANI España - Last Filed: 03/14/23 08:47> Chief Complaint: New onset right medial hallux blister <AMAIRANI España - Last Filed: 03/14/23 08:47> Narrative: 57 year old male presents today for reevaluation of blister on the medial aspect of the right hallux near the site of his original ulcer which he was treated for at the beginning of this year. Most recent radiographs reveal a small exostosis on the medial aspect of the distal phalanx. Patient doing well with daily dressing changes with post op shoe. No new concerns. Denies signs of infection. <AMAIRANI España - Last Filed: 03/14/23 08:47> Review of Systems Review of Systems: All systems reviewed & are unremarkable except as noted in HPI and below <AMAIRANI España - Last Filed: 03/14/23 08:47> [facility] Past Medical History Medical History: Medical History Asthma Diabetic foot ulcer Diabetic neuropathy DM2 (diabetes mellitus, type 2) HTN (hypertension) with goal to be determined Hyperlipidemia Obesity Type 2 diabetes with complication <AMAIRANI España - Last Filed: 03/14/23 08:47> Surgical History Surgical History: Surgical History H/O eye surgery H/O shoulder surgery Sarcoma removed History of back surgery S/P lateral meniscus repair of left knee And right <AMAIRANI España - Last Filed: 03/14/23 08:47> Family History Family History: Family History Father Hypertension Mother Chronic back pain <AMAIRANI España - Last Filed: 03/14/23 08:47> Social History Social History: Social History Social History: The patient is and lives with his . The patient has 2 daughters. His is the durable power energy attorney for healthcare. The patient is lifelong nonsmoker. He has a couple drinks a week. 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 Code status full code Smoking status: Never smoker Alcohol intake: former Drinks per week: 3 Substance use: former Substance use type: does not use Lack of Transportation: No Lack of Food: Never True Current Housing: I Have Housing Concerned About Future Housing: No Difficulty Paying Gas/Electric Bills: No Difficulty Paying for Meds: No Currently Unemployed: No Education: Bachelor's Degree Difficulty w/ Childcare or Family Care: No Spiritual care concerns: No <AMAIRANI España - Last Filed: 03/14/23 08:47> Meds Home Medications and Allergies Home medications: Home Medications Medication Instructions Recorded Confirmed Type albuterol sulfate 90 mcg/actuation 90 mcg inhalation DIRECTED 08/19/22 12/27/22 History aerosol inhaler cetirizine 10 mg capsule (Zyrtec) 10 mg PO DAILY PRN Allergy Symptoms 10/08/22 12/27/22 History multivitamin (Daily Multi-Vitamin 1 tablet PO DAILY 10/08/22 12/27/22 History tablet) metformin 1,000 mg tablet 1,000 mg PO BID #180 tabs 12/27/22 12/27/22 Rx trazodone 50 mg tablet 50 mg PO QHS PRN sleep #90 tabs 12/27/22 12/27/22 Rx tamsulosin 0.4 mg capsule 0.4 mg PO HS #90 caps 01/21/23 Rx atenolol 50 mg tablet 50 mg PO HS #90 tabs 03/11/23 Rx gabapentin 300 mg capsule 300 mg PO BID #180 caps 03/11/23 Rx lisinopril 20 2 tablet PO DAILY #180 tabs 03/11/23 Rx mg-hydrochlorothiazide 12.5 mg tablet simvastatin 40 mg tablet 40 mg PO HS #90 tabs 03/11/23 Rx <AMAIRANI España - Last Filed: 03/14/23 08:47> Allergies/Adverse reactions: Allergies Allergy/AdvReac Type Severity Reaction Status Date / Time glipizide Allergy Intermediate Rash Verified 12/27/22 12:15 <Kia Roe, [facility] - Last Filed: 03/14/23 08:47> Exam Const: General: No confusion <Kia Melara
--- NOTE | 2023-04-08 09:15 | PM.CNOR ---
Assessment and Plan Assessment and plan (1) Diabetic foot ulcer: Qualifiers: Diabetic foot ulcer location: toe Diabetes mellitus type: type 2 Laterality: right Non-pressure ulcer stage: limited to breakdown of skin Qualified Code(s): E11.621 - Type 2 diabetes mellitus with foot ulcer; L97.511 - Non-pressure chronic ulcer of other part of right foot limited to breakdown of skin Code(s): E11.621 - Type 2 diabetes mellitus with foot ulcer; L97.509 - Non-pressure chronic ulcer of other part of unspecified foot with unspecified severity Status: Acute Assessment and Plan: Ulcer on the medial aspect of the hallux Without drainage. No open areas. Continue with foam covering. Insert modification to decrease pressure. Follow-up in 1 week for re-evaluation. If the wound is closed and dry he may return to shoe wear with the custom inserts at that time. Follow-up in 4 weeks with this clinic. (2) DM2 (diabetes mellitus, type 2): Code(s): E11.9 - Type 2 diabetes mellitus without complications Status: Acute Assessment and Plan: Discussed importance of proper nutrition, diabetic diet and medication compliance for optimal healing. Reviewed signs and symptoms of infection including fever, chills, night sweats, nausea, vomiting, diarrhea, changes to the wound bed or purulent drainage to report to the ED immediately. Patient verbalized understanding. History of Present Illness HPI Consult date: 04/08/23 Requesting physician: Kayla Galdamez RN Chief complaint: right foot ulcer Narrative: 57-year-old gentleman returns to the [facility] for evaluation of right hallux. Previously known to the service for right hallux abscess treated with operative debridement and graft application. He had had a recurrence 2 weeks ago. He was up ambulating with regular shoe wear. Since and he has been doing wound care. He has had no worsening. Notes improvement overall. Denies fever chills. Review of Systems Constitutional: Constitutional: Denies fever(s) Eyes: Eyes: Denies blurry vision ENT: Reports Normal hearing present Cardiovascular: Cardiovascular: Denies chest pain and Denies dyspnea Respiratory: Respiratory: Denies dyspnea and Denies wheezing Gastrointestinal: Gastrointestinal: Denies abdominal pain Genitourinary: Genitourinary: Denies urinary urgency Musculoskeletal: Musculoskeletal: Reports as per HPI and Denies numbness Integumentary/Breasts: Skin/Breast: Denies changing lesions and Denies sores Neurologic: Reports Normal hearing present, Denies behavioral changes, Denies confusion, Denies numbness and Denies convulsions Psychiatric: Psychiatric: Denies behavioral changes, Denies confusion and Denies hallucinations Endocrine: Endocrine: Denies heat intolerance Hematologic/Lymphatic: Hematologic/Lymphatic: Denies easy bleeding Allergic/Immunologic: Allergic/Immunologic: Denies wheezing PMFSH Past Medical History Medical History Asthma Diabetic foot ulcer Diabetic neuropathy DM2 (diabetes mellitus, type 2) HTN (hypertension) with goal to be determined Hyperlipidemia Obesity Type 2 diabetes with complication Surgical History Surgical History H/O eye surgery H/O shoulder surgery Sarcoma removed History of back surgery S/P lateral meniscus repair of left knee And right Family History Family History Father Hypertension Mother Chronic back pain Social History Social History Social History: The patient is and lives with his . The patient has 2 daughters. His is the durable power automotive brake adjuster for healthcare. The patient is lifelong nonsmoker. He has a couple drinks a week. 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
--- NOTE | 2023-05-06 08:44 | PM.IMHP ---
H&P: HPI History of Present Illness Date/Time: 05/06/23 08:44 Chief Complaint: Right hallux diabetic ulcer Narrative: patient returns [facility] wound clinic for follow-up of right hallux. Continuing with foam, silver gel and offloading. He has gone back to his custom shoe and insert. Notes no new problems. Review of Systems Constitutional: Constitutional: Denies fever(s) Eyes: Eyes: Denies blurry vision ENT: Reports Normal hearing present Cardiovascular: Cardiovascular: Denies chest pain and Denies dyspnea Respiratory: Respiratory: Denies dyspnea and Denies wheezing Gastrointestinal: Gastrointestinal: Denies abdominal pain Genitourinary: Genitourinary: Denies urinary urgency Musculoskeletal: Musculoskeletal: Reports as per HPI and Denies numbness Integumentary/Breasts: Skin/Breast: Denies changing lesions and Denies sores Neurologic: Reports Normal hearing present, Denies behavioral changes, Denies confusion, Denies numbness and Denies convulsions Psychiatric: Psychiatric: Denies behavioral changes, Denies confusion and Denies hallucinations Endocrine: Endocrine: Denies heat intolerance Hematologic/Lymphatic: Hematologic/Lymphatic: Denies easy bleeding Allergic/Immunologic: Allergic/Immunologic: Denies wheezing PMFSH Past Medical History Medical History Asthma Diabetic foot ulcer Diabetic neuropathy DM2 (diabetes mellitus, type 2) HTN (hypertension) with goal to be determined Hyperlipidemia Obesity Type 2 diabetes with complication Surgical History Surgical History H/O eye surgery H/O shoulder surgery Sarcoma removed History of back surgery S/P lateral meniscus repair of left knee And right Family History Family History Father Hypertension Mother Chronic back pain Social History Social History Social History: The patient is and lives with his . The patient has 2 daughters. His is the durable power traffic law attorney for healthcare. The patient is lifelong nonsmoker. He has a couple drinks a week. 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 Code status full code Smoking status: Never smoker Alcohol intake: former Drinks per week: 3 Substance use: former Substance use type: does not use Lack of Transportation: No Lack of Food: Never True Current Housing: I Have Housing Concerned About Future Housing: No Difficulty Paying Gas/Electric Bills: No Difficulty Paying for Meds: No Currently Unemployed: No Education: Bachelor's Degree Difficulty w/ Childcare or Family Care: No Spiritual care concerns: No Meds Home Medications and Allergies Home Medications Medication Instructions Recorded Confirmed Type albuterol sulfate 90 mcg/actuation 90 mcg inhalation DIRECTED 08/19/22 04/08/23 History aerosol inhaler cetirizine 10 mg capsule (Zyrtec) 10 mg PO DAILY PRN Allergy Symptoms 10/08/22 04/08/23 History multivitamin (Daily Multi-Vitamin 1 tablet PO DAILY 10/08/22 04/08/23 History tablet) metformin 1,000 mg tablet 1,000 mg PO BID #180 tabs 12/27/22 04/08/23 Rx trazodone 50 mg tablet 50 mg PO QHS PRN sleep #90 tabs 12/27/22 04/08/23 Rx tamsulosin 0.4 mg capsule 0.4 mg PO HS #90 caps 01/21/23 04/08/23 Rx atenolol 50 mg tablet 50 mg PO HS #90 tabs 03/11/23 04/08/23 Rx lisinopril 20 2 tablet PO DAILY #180 tabs 03/11/23 04/08/23 Rx mg-hydrochlorothiazide 12.5 mg tablet simvastatin 40 mg tablet 40 mg PO HS #90 tabs 03/11/23 04/08/23 Rx gabapentin 300 mg capsule 300 mg PO TID #270 caps 04/08/23 04/08/23 Rx Allergies Allergy/AdvReac Type Severity Reaction Status Date / Time glipizide Allergy Intermediate Rash Verified 04/08/23 11:22 Exam Const: General: No confusion Orientation/conscio
== END 2023-05-22 23:59 | disposition home or self-care (01) ==
LOC: ANHWOC 07:08
PROVIDERS: PCP Family Medicine; Visit Provider Orthopaedic Surgery
DX: L97.509 Non-pressure chronic ulcer of other part of unspecified foot with unspecified severity (principal)
CPT/HCPCS: 99212; 99213; G0463

== ENCOUNTER 2025-01-19 15:19 | Outpatient (CLI) | payer BC, SELFPAY ==
[2025-01-19 16:01] LABS: Kit Draw Collected
--- OUTSIDE RECORDS SUMMARY | 2025-01-19 16:14 | XMS_ITS | Clinical Summary ---
Author Organization [address] Address [address] [place] [address] Care Team Providers Care Refined Syrup Operator Name Role Phone Fidel Corea DO Primary Care Provider +1- [phone] Allergies Active Allergy Reactions Criticality Noted Date Comments Glimepiride Hives Medium 01/12/2025 Medications atenoloL (TENORMIN) 50 mg tablet Take 1 tablet (50 mg total) by mouth nightly 11/30/2024 Active gabapentin (NEURONTIN) 300 mg capsule Take 1 capsule (300 mg total) by mouth 3 (three) times a day 12/20/2024 Active lisinopriL (PRINIVIL,ZESTR IL) 10 mg tablet Take 1 tablet (10 mg total) by mouth daily 12/20/2024 Active metFORMIN (GLUCOPHAGE) 1,000 mg tablet Take 1 tablet (1,000 mg total) by mouth 2 (two) times a day 12/22/2024 Active simvastatin (ZOCOR) 40 mg tablet Take 1 tablet (40 mg total) by mouth nightly 12/02/2024 Active tamsulosin (FLOMAX) 0.4 mg extended release capsule Take 1 capsule (0.4 mg total) by mouth nightly 11/14/2024 Active sulfamethoxazol e-trimethoprim (BACTRIM DS) 800-160 mg per tabletIndicatio ns:Abscess Take 1 tablet by mouth 2 (two) times a day for 7 days 14 tablet 01/12/2025 Active Active Problems No known active problems Encounters Date Type Department Care Team Description 01/12/2025 3:30 PM CDT Office Visit [facility] at [address] [place] [address] Tameka Heart NP Abscess (Primary Dx) from Last 3 Months Social History Tobacco Use Types Packs/Day Years Used Date Smoking Tobacco: Never Assessed Sex and Gender Information Value Date Recorded Sex Assigned at Not on file Legal Sex Male 2:58 PM CDT Gender Identity Not on file Sexual Orientation Not on file Obstetrics History Last Filed Vital Signs Vital Sign Reading Time Taken Comments Blood Pressure 138/60 01/12/2025 3:30 PM CDT Pulse 69 01/12/2025 3:30 PM CDT Temperature 36.3 C (97.4 F) 01/12/2025 3:30 PM CDT Respiratory Rate 18 01/12/2025 3:30 PM CDT Oxygen Saturation 97% 01/12/2025 3:30 PM CDT Inhaled Oxygen Concentration - - Weight 96.6 kg (213 lb) 01/12/2025 3:30 PM CDT Height 175.3 cm (5' 9 ) 01/12/2025 3:30 PM CDT Body Mass Index 31.45 01/12/2025 3:30 PM CDT Plan of Treatment Health Maintenance Due Date Last Done Comments Colon Cancer Screening-Colonoscopy 1964 Depression Screening 1964 Hepatitis C Screening 1964 Prostate Cancer Screening-PSA 1964 DTaP/Tdap/Td Vaccine (1 - Tdap) 1975 Hepatitis B Screening 1982 Regular Well Visit/Exam 18-64 1982 Zoster Vaccine (1 of 2) 2014 Influenza Vaccine Completed 06/25/2024 Pneumococcal vaccine <65 Aged Out No longer eligible based on patient's age to complete this topic Insurance [employer] OOS Care Teams Refined Syrup Operator Relationship Specialty Start Date End Date Fidel Corea DO [facility] [address] MAL[place]DO [address] [place] [id number] PCP - General Internal Medicine 01/12/25
--- OUTSIDE RECORDS SUMMARY | 2025-01-19 16:14 | XMS_ITS | Referral Summary ---
Author Organization [address] Address [address] [place] [address] Care Team Providers Care Rn Cardiovascular Name Role Phone Fidel Corea DO Primary Care Provider +1- [phone] Encounters Date Type Department Care Team Description 01/12/2025 3:30 PM CDT Office Visit [facility] at [place] [address] [place] [address] Tameka Heart NP Abscess (Primary Dx) from Last 3 Months Allergies Active Allergy Reactions Criticality Noted Date [...] Active Active Problems No known active problems Social History Tobacco Use Types Packs/Day Years Used Date Smoking Tobacco: Never Assessed Sex and Gender Information Value Date Recorded Sex Assigned at Not on file Legal Sex Male 2:58 PM CDT Gender Identity Not on file Sexual Orientation Not on file Last Filed Vital Signs Vital Sign Reading [...] 01/12/2025 3:30 PM CDT Plan of Treatment Not on file Insurance [employer] OOS Care Teams Rn Cardiovascular Relationship Specialty Start Date End Date Fidel Corea DO [id number] [facility] [address] MALDON[address] [place] [id number] PCP - General Internal Medicine 01/12/25
== END 2025-01-19 15:20 | disposition home or self-care (01) ==
LOC: ANHGOSHLAB 15:22
PROVIDERS: PCP Internal Medicine; Visit Provider Internal Medicine
DX: Z76.89 Persons encountering health services in other specified circumstances (principal)
CPT/HCPCS: 36415

== ENCOUNTER 2025-05-06 06:49 | Day surgery (SDC) | payer BC, SELFPAY ==
[2025-04-26 13:13] VITALS: BMI 29.2
--- OUTSIDE RECORDS SUMMARY | 2025-05-06 06:51 | XMS_ITS | Clinical Summary ---
Author Organization [address] Address [address] [facility] [place] [address] Care Team Providers Care Radio Program Director Name Role Phone Fidel Corea DO Primary Care Provider +1- [phone] Allergies Active Allergy Reactions Criticality Noted Date Comments Glimepiride Hives Medium 01/12/2025 Medications atenoloL (TENORMIN) 50 mg tablet Take 1 tablet (50 mg total) by mouth nightly 5 Active gabapentin (NEURONTIN) 300 mg capsule Take 1 capsule (300 mg total) by mouth 3 (three) times a day 5 Active lisinopriL (PRINIVIL,ZESTR IL) 10 mg tablet Take 1 tablet (10 mg total) by mouth daily 5 Active metFORMIN (GLUCOPHAGE) 1,000 mg tablet Take 1 tablet (1,000 mg total) by mouth 2 (two) times a day 5 Active simvastatin (ZOCOR) 40 mg tablet Take 1 tablet (40 mg total) by mouth nightly 5 Active tamsulosin (FLOMAX) 0.4 mg extended release capsule Take 1 capsule (0.4 mg total) by mouth nightly 5 Active albuterol HFA (PROVENTIL HFA,VENTOLIN HFA,PROAIR HFA) 90 mcg/actuation inhaler 2 puffs 5 Active Ozempic 0.25 mg or 0.5 mg (2 mg/3 mL) pen injector injection 0.5 mg 5 Active traZODone (DESYREL) 50 mg tablet Take 1 tablet (50 mg total) by mouth nightly 5 Active mupirocin (BACTROBAN) 2 % ointmentIndicat ions:Abscess Apply topically 3 (three) times a day 22 g 5 Active Active Problems No known active problems Encounters Date Type Department Care Team Description 03/27/2025 Results Follow-Up [facility] at [address] [place] [address] Balbina Segovia NP Aerobic and anaerobic culture and gram stain Abscess Thigh, left 03/24/2025 5:53 PM CDT - 03/24/2025 11:59 PM CDT Hospital Encounter [place] [id number] Abscess Discharge Disposition: Discharge to home or self care 03/24/2025 5:30 PM CDT Office Visit [facility] at [address] [place] [address] Balbina Segovia NP Abscess (Primary Dx) from Last 3 [...] Sign Reading Time Taken Comments Blood Pressure 150/80 03/24/2025 5:22 PM CDT Pulse 78 03/24/2025 5:22 PM CDT Temperature 36.6 C (97.8 F) 03/24/2025 5:22 PM CDT Respiratory Rate 20 03/24/2025 5:22 PM CDT Oxygen Saturation 97% 03/24/2025 5:22 PM CDT Inhaled Oxygen Concentration - - Weight 91.7 kg (202 lb 3.2 oz) 03/24/2025 5:22 P M CDT Height 175.3 cm (5' 9) 03/24/2025 5:22 PM CDT Body Mass Index 29.86 03/24/2025 5:22 PM CDT Plan of Treatment Health Maintenance Due Date Last Done Comments Colon Cancer Screening-Colonoscopy 1964 Depression Screening 1964 Hepatitis C Screening 1964 Prostate Cancer Screening-PSA 1964 DTaP/Tdap/Td Vaccine (1 - Tdap) 1975 Hepatitis B Screening 1982 Regular Well Visit/Exam 18-64 1982 Zoster Vaccine (1 of 2) 2014 Influenza Vaccine (#1) 2025 06/25/2024 Pneumococcal vaccine <65 Aged Out No longer eligible based on patient's age to complete this topic Procedures Procedure Name Priority Date/Time Associated Diagnosis Comments AEROBIC AND ANAEROBIC CULTURE AND GRAM STAIN Routine 03/24/2025 5:53 PM CDT Abscess from Last 3 Months Results * Aerobic and anaerobic culture and gram stain Abscess Thigh, left (03/24/2025 5:53 PM CDT) Direct Specimen Exam Stain: No polymorphonuclear leukocytes seen. No organisms seen. Comment:Testing performed by : [facility], [address] [place]., [address] Report Final Report: Rare Mixed skin microorganisms. PETR Comment:Testing performed by : [facility], [address] [place]., [address] Organism MIXED SKIN MICROORGANISMS. PETR Abscess (Thigh, left) 03/24/2025 5:53 PM CDT 03/25/2025 12:24 AM CDT Narrative PETR - 03/28/2025 1:03 PM CDT Testing performed by [facility] Laboratory ([phone]) Specimens submitted from normally sterile body sites will have all bacterial morphotypes identified. Specimens that contain grossly mixed augustin and/or are from body sites that are not normally sterile will be examined for Staphylococcus aureus, Pseudomonas aeruginosa, beta-hemolytic strep, vancomycin-resistant Enterococcus, Bacteroides, Parabacteroides, Clostridium perfringens and fungus. If any of these are isolated, the organism will be reported. Current interpretive data was last revised on 2019. Balbina Segovia [facility] MICROBIOLOGY - GENERAL ORDER FELICITY Final Result PETR [id number] [facility] Department [place] [address] from Last 3 Months Insurance [employer] OOS [employer] O[employer] Care Teams Radio Program Director Relationship Specialty Start Date End Date Fidel Corea DO [facility] [address] PCP - General Internal Medicine 01/12/25
[2025-05-06 09:07] VITALS: BP 137/67; PULSE 79; RESP 18; TEMP 36.3; O2SAT 99; BMI 29.2
[2025-05-06] MEDS: LACTATED RINGERS 1,000 ML 150 ML IV CONT (09:18)
--- NOTE | 2025-05-06 09:32 | P.PNAN_ITS ---
Anes - Initial Pre Proc Eval Procedure: Operation Date: 05/06/25 10:00 Proposed Procedures p Colonoscopy - Mark Senior MD Date/Time: 05/06/25 09:32 Surgeon: Mark Senior MD Pre Op Diagnosis: Other fecal abnormalities Patient Data Age: 59 Gender: M Height: 1.75 m Weight: 89.9 kg Last Vital Signs Temp 36.3 C L 05/06/25 09:07 Pulse 79 05/06/25 09:07 Resp 18 05/06/25 09:07 BP 137/67 05/06/25 09:07 Pulse Ox 99 05/06/25 09:07 O2 Del Method Room Air 05/06/25 09:07 Allergies Allergy/AdvReac Type Severity Reaction Status Date / Time glipizide Allergy Intermediate Rash Verified 05/06/25 09:06 Home Medications ?Medication ?Instructions ?Recorded ?Confirmed ?Type cetirizine 10 mg capsule (Zyrtec) 10 mg PO DAILY PRN Allergy Symptoms 10/08/22 05/06/25 History multivitamin (Daily Multi-Vitamin 1 tablet PO DAILY 10/08/22 04/26/25 History tablet) gabapentin 300 mg capsule 300 mg PO TID #90 caps 01/19/25 05/06/25 Rx albuterol sulfate 90 mcg/actuation 2 puff inhalation Q4-6H PRN 01/20/25 04/26/25 Rx aerosol inhaler shortness of breath or wheezing #6.7 grams atenolol 50 mg tablet 50 mg PO HS #90 tabs 01/25/25 05/06/25 Rx lisinopril 10 mg tablet 10 mg PO DAILY #90 tabs 01/25/25 05/06/25 Rx metformin 1,000 mg tablet 1,000 mg PO BID #180 tabs 01/25/25 05/06/25 Rx simvastatin 40 mg tablet 40 mg PO HS #90 tabs 01/25/25 05/06/25 Rx tamsulosin 0.4 mg capsule 0.4 mg PO HS #90 caps 01/25/25 05/06/25 Rx trazodone 50 mg tablet 50 mg PO QHS PRN sleep #90 tabs 01/28/25 04/26/25 Rx semaglutide 0.25 mg or 0.5 mg (2 0.25 mg (0.368 mL) subcut WEEKLY 02/07/25 04/26/25 Rx mg/3 mL) subcutaneous pen injector #3 mL (Ozempic) semaglutide 0.25 mg or 0.5 mg (2 0.5 mg (0.736 mL) subcut WEEKLY #3 02/07/25 04/26/25 Rx mg/3 mL) subcutaneous pen injector mL (Ozempic) Patient hx anesthesia problems: none Family hx anesthesia problems: none Results Review: All pre-operative results and documents have been reviewed as part of the pre- operative evaluation. [facility]LY [facility], [facility] Past Medical History Medical History Anemia Hypercalcemia Diabetic foot ulcer Obesity Type 2 diabetes with complication Hyperlipidemia HTN (hypertension) with goal to be determined Diabetic neuropathy DM2 (diabetes mellitus, type 2) Asthma Surgical History Surgical History H/O shoulder surgery Sarcoma removed S/P lateral meniscus repair of left knee And right H/O eye surgery History of back surgery Family History Family History Father Hypertension Mother Chronic back pain Social History Social History Social History: The patient is and lives with his . The patient has 2 daughters. His is the durable power pharmacy aide for healthcare. The patient is lifelong nonsmoker. He has a couple drinks a week. 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 Code status full code Smoking status: Never smoker Alcohol intake: former Drinks per week: 3 Substance use: former Substance use type: does not use Lack of Transportation: No Lack of Food: Never True Current Housing: I Have Housing Concerned About Future Housing: No Difficulty Paying Gas/Electric Bills: No Difficulty Paying for Meds: No Currently Unemployed: No Education: Bachelor's Degree Difficulty w/ Childcare or Family Care: No Spiritual care concerns: No Anes - Eval Final PreProcedure Day of Procedure 05/06/25 09:32 Patient weight: overweight Heart: regular rate and rhythm Lungs: clear to auscultation Airway: Mallampati scale class III Neurological: alert and oriented Last oral intake: >/= 8 hours ASA classification: III Emergent: no Anesthetic plan: proceed Anesthesia type and monitoring: general GIVS and standard monitoring Results Review: All pre-operative results and documents have been reviewed as part of the pre- operative evaluation. Informed Consent: The patient's anesthetic plan and its attendant risks and benefits were discussed with the patient/family/POA. Questions were solicited and answers provided to the satisfaction of the patient/family/POA.
--- NOTE | 2025-05-06 09:35 | PM.HPGS ---
History of Present Illness History of Present Illness Consent: Risks, benefits, and alternatives have been discussed and questions answered. Patient agrees to proceed with procedure. Chief complaint: Other fecal abnormalities Narrative: Eric Santos is a 59 year old male here for first colonoscopy, + cologuard Review of Systems Review of Systems: All systems reviewed & are unremarkable except as noted in HPI and below PMFSH Past Medical History Medical History (Updated 05/06/25 @ 09:36 by Mark Senoir MD) Positive colorectal cancer screening using Cologuard test Anemia Hypercalcemia Diabetic foot ulcer Obesity Type 2 diabetes with complication Hyperlipidemia HTN (hypertension) with goal to be determined Diabetic neuropathy DM2 (diabetes mellitus, type 2) Asthma Surgical History Surgical History H/O shoulder surgery Sarcoma removed S/P lateral meniscus repair of left knee And right H/O eye surgery History of back surgery Family History Family History Father Hypertension Mother Chronic back pain Social History Social History Social History: The patient is and lives with his . The patient has 2 daughters. His is the durable power patent attorney for healthcare. The patient is lifelong nonsmoker. He has a couple drinks a week. 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 Code status full code Smoking status: Never smoker Alcohol intake: former Drinks per week: 3 Substance use: former Substance use type: does not use Lack of Transportation: No Lack of Food: Never True Current Housing: I Have Housing Concerned About Future Housing: No Difficulty Paying Gas/Electric Bills: No Difficulty Paying for Meds: No Currently Unemployed: No Education: Bachelor's Degree Difficulty w/ Childcare or Family Care: No Spiritual care concerns: No Meds Home Medications and Allergies Home Medications ?Medication ?Instructions ?Recorded ?Confirmed ?Type cetirizine 10 mg capsule (Zyrtec) 10 mg PO DAILY PRN Allergy Symptoms 10/08/22 05/06/25 History multivitamin (Daily Multi-Vitamin 1 tablet PO DAILY 10/08/22 04/26/25 History tablet) gabapentin 300 mg capsule 300 mg PO TID #90 caps 01/19/25 05/06/25 Rx albuterol sulfate 90 mcg/actuation 2 puff inhalation Q4-6H PRN 01/20/25 04/26/25 Rx aerosol inhaler shortness of breath or wheezing #6.7 grams atenolol 50 mg tablet 50 mg PO HS #90 tabs 01/25/25 05/06/25 Rx lisinopril 10 mg tablet 10 mg PO DAILY #90 tabs 01/25/25 05/06/25 Rx metformin 1,000 mg tablet 1,000 mg PO BID #180 tabs 01/25/25 05/06/25 Rx simvastatin 40 mg tablet 40 mg PO HS #90 tabs 01/25/25 05/06/25 Rx tamsulosin 0.4 mg capsule 0.4 mg PO HS #90 caps 01/25/25 05/06/25 Rx trazodone 50 mg tablet 50 mg PO QHS PRN sleep #90 tabs 01/28/25 04/26/25 Rx semaglutide 0.25 mg or 0.5 mg (2 0.25 mg (0.368 mL) subcut WEEKLY 02/07/25 04/26/25 Rx mg/3 mL) subcutaneous pen injector #3 mL (Ozempic) semaglutide 0.25 mg or 0.5 mg (2 0.5 mg (0.736 mL) subcut WEEKLY #3 02/07/25 04/26/25 Rx mg/3 mL) subcutaneous pen injector mL (Ozempic) Allergies Allergy/AdvReac Type Severity Reaction Status Date / Time glipizide Allergy Intermediate Rash Verified 05/06/25 09:06 Vital Signs Vital Signs - 24 hr 05/06/25 09:07 Temperature 97.4 F L Pulse Rate 79 Respiratory Rate 18 Blood Pressure 137/67 Pulse Oximetry 99 Oxygen Delivery Room Air Exam Const: General: comfortable and no acute distress HENMT: Face/Nose/Sinus: Normal nares present Eyes: General: appearance normal, both eyes and all related structures Neck: Neck: no JVD Resp: Auscultation: clear to auscultation bilaterally Cardio: Rate: regular rate Rhythm: regular rhythm GI: Inspection: non-distended GI Palp: Yes Soft to palpation Skin: General skin exam: normal color Neuro: General: gait normal Speech: normal speech Extrem: General: normal to inspection Psych: Mental Status: mental status grossly normal Assessment and Plan Assessment and plan (1) Positive colorectal cancer screening using Cologuard test: Code(s): R19.5 - Other fecal abnormalities Status: Acute Assessment and Plan: colonoscopy
[2025-05-06 09:52] VITALS: BP 99/61; PULSE 82; RESP 25; O2SAT 97
[2025-05-06 10:02] VITALS: BP 110/55; PULSE 81; RESP 21; O2SAT 99
[2025-05-06 10:12] VITALS: BP 122/61; PULSE 75; RESP 20; O2SAT 99
== END 2025-05-06 10:25 | disposition home or self-care (01) ==
PROVIDERS: PCP Internal Medicine; Referring Provider Internal Medicine; Visit Provider Internal Medicine Gastroenterology
PROC: 0DJD8ZZ Inspection of Lower Intestinal Tract, Via Natural or Artificial Opening Endoscopic (ICD-10-PCS; CPT 45378; principal; 2025-05-06 10:00)
DX: R19.5 Other fecal abnormalities (principal); K57.30 Diverticulosis of large intestine without perforation or abscess without bleeding; E78.5 Hyperlipidemia, unspecified; I10 Essential (primary) hypertension; J45.909 Unspecified asthma, uncomplicated; D64.9 Anemia, unspecified; E11.621 Type 2 diabetes mellitus with foot ulcer; E83.52 Hypercalcemia; Z79.51 Long term (current) use of inhaled steroids; Z79.84 Long term (current) use of oral hypoglycemic drugs; Z79.85 Long-term (current) use of injectable non-insulin antidiabetic drugs; Z98.890 Other specified postprocedural states; Z98.1 Arthrodesis status
CPT/HCPCS: 45378; 82948; J2704; J7120

== ENCOUNTER 2025-07-28 09:33 | Outpatient (CLI) | payer BC, SELFPAY ==
--- OUTSIDE RECORDS SUMMARY | 2025-07-28 18:02 | XMS_ITS | Clinical Summary ---
Author Organization [address] Address [address] [facility] [place] [address] Care Team Providers Care Regional Driver Name Role Phone Fidel Corea DO Primary Care Provider Allergies Active Allergy Reactions Criticality Noted Date [...] patient's age to complete this topic Insurance [employer] OOS FRUCT OOS Care Teams Regional Driver Relationship Specialty Start Date End Date Fidel Corea DO PCP - General Internal Medicine 01/12/25
== END 2025-07-28 09:34 | disposition home or self-care (01) ==
LOC: ANHGOSHLAB 09:34
PROVIDERS: PCP Internal Medicine; Visit Provider Internal Medicine
DX: Z76.89 Persons encountering health services in other specified circumstances (principal)
CPT/HCPCS: 36415